=== PATIENT | male | born 1940 ===

== ENCOUNTER 2017-05-18 10:48 | Day surgery (SDC) | payer MEDICARE, MEDICAID ==
[2017-05-15 10:54] VITALS: BMI 26.1
[2017-05-18] MEDS ORDERED: Propofol 10 mg/ml Inj (20 ML) ONE (12:57)
[2017-05-18] MEDS ORDERED: Midazolam 2 MG/2 ML VIAL ONE ×2 (12:58)
--- NOTE | 2017-05-18 13:01 | CP.SDSHP ---
Same Day Surgery H & P - History Proposed Procedure: Right lung nodule biopsy Pre-Op Diagnosis: Right lung nodule - Allergies Allergies: Allergies No Known Allergies Allergy (Verified 05/16/14 13:27) - Physical Exam Mental Status: Alert & Oriented x3 Neuro: WNL Heart: WNL - Impression Impression: Pt with a 17 mm right lung nodule in the medial basal segment along the pleura referred for biopsy. Plan CT guided core biopsy. Informed consent obtained via a records management director and risk of pneumothorax requiring a chest tube was explained to the patient. Pt. Evaluated Today:Candidate for Anesthesia & Procedure: Yes Short Stay Discharge - Short Stay Discharge Admitting Diagnosis/Reason for Visit: LUNG LESION
--- NOTE | 2017-05-18 13:32 | CP.SDSHP ---
Same Day Surgery H & P - History Proposed Procedure: CT guided biopsy Pre-Op Diagnosis: Metastatic cancer lung nodule - Allergies Allergies: Allergies No Known Allergies Allergy (Verified 05/16/14 13:27) - Physical Exam Mental Status: Alert & Oriented x3 - Impression Impression: Pt with mulitple pulmonary nodules. Plan CT guided core biopsy. Pt. Evaluated Today:Candidate for Anesthesia & Procedure: Yes (ASA 3 Malampati 3) - Date & Time Date: 05/18/17 Time: 13:25 Short Stay Discharge - Short Stay Discharge Admitting Diagnosis/Reason for Visit: LUNG LESION Disposition: HOME/ ROUTINE
--- NOTE | 2017-05-18 15:09 | RAD ---
PROCEDURE: CHEST RADIOGRAPH, 1 VIEW HISTORY: Status post right lung nodule biopsy. COMPARISON: None available. FINDINGS: LUNGS: Multiple pulmonary nodules and right hilar mass identified. Please refer to CT scan 04/17/2017. PLEURA: No pneumothorax or pleural fluid seen. CARDIOVASCULAR: Normal. OSSEOUS STRUCTURES: No significant abnormalities. VISUALIZED UPPER ABDOMEN: Normal. OTHER FINDINGS: None. Right IJ port. IMPRESSION: No pneumothorax following right lung nodule biopsy. Multiple pulmonary nodules.
--- NOTE | 2017-05-18 15:27 | CT ---
PROCEDURE: Date of procedure: 05/18/2017 Procedure: 1. CT-guided lung mass biopsy, CPT [address] Guidance for biopsy, 559[address] Medications: The patient was sedated by anesthesiologist along with physiologic monitoring. HISTORY: Multiple pulmonary nodules TECHNIQUE: Following informed consent, the Pt's chest was marked. The Pt was placed prone on the CT table and procedure time out was performed. A noncontrast CT scan was performed. Noncontrast CT scan confirmed the presence multiple right and left pulmonary nodules. A skin localizer was placed on the patient's right back and a repeat CT scan was performed. The skin was marked, prepped, and draped in the usual sterile fashion. After the skin was anesthetized with lidocaine and the patient sedated by the anesthesiologist, a 20 gauge core needle was advanced percutaneously under direct CT guidance into the large right lower lobe pulmonary nodule. Upon confirmation of needle position, two 20-gauge core specimens were obtained and sent for routine pathology. The needle was removed and a xeroform dressing was applied. A post biopsy CT scan showed no pneumothorax. IMPRESSION: CT guided core biopsy right lung nodule.
== END 2017-05-18 15:52 | disposition home or self-care (01) ==
LOC: C.SPRAD 10:48
PROVIDERS: ATTEND Radiology Vascular & Interventional Radiology
DX: R91.1 Solitary pulmonary nodule (principal)
CPT/HCPCS: 32405; 71010; 77012; 88305; 88342; J2250; J2704

== ENCOUNTER 2017-06-13 10:07 | Emergency (ER) | payer MEDICARE, MEDICAID ==
[2017-06-13 10:07] VITALS: BMI 26.1
[2017-06-13 10:20] VITALS: TEMP 97.5
[2017-06-13] MEDS ORDERED: Lactated Ringer's 1,000 ML IV STA (11:50)
[2017-06-13] MEDS ORDERED: Iohexol 240 (50 ml) PO STA (11:50)
--- NOTE | 2017-06-13 11:51 | C.PDOC ---
History Of Present Illness 76 year old male presents to the ED for evaluation of periumbilical abdominal pain which began yesterday morning. Patient states he did not have an appetite yesterday and did not eat. Patient admits to experiencing three episodes of diarrhea, that was characteristic of loose brown stool. Patient states he is currently undergoing chemotherapy for metastatic lung cancer and his last session was 4 days ago. Patient denies nausea, vomiting, recent travel, or recent antibiotics use. History obtained via in demand translating service, due to language barrier ( patient is Burkinan-speaking). 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 denies: Nausea, Vomiting Recent travel outside of the [place]: No Additional History Per: Patient Past Medical History Reviewed: Historical Data, Nursing Documentation, Vital Signs Vital Signs: Last Vital Signs Temp 97.5 F L 06/13/17 10:15 Pulse 63 06/13/17 16:25 Resp 16 06/13/17 16:25 BP 134/81 06/13/17 16:25 Pulse Ox 99 06/13/17 17:59 - Medical History PMH: Gastritis Denies: Chronic Kidney Disease Surgical History: No Surg Hx - [facility] Procedures DRAINAGE OF STOMACH WITH DRAINAGE DEVICE, VIA OPENING (09/15/15) EXCISION OF JEJUNUM, OPEN APPROACH, DIAGNOSTIC (09/15/15) INSPECTION OF GASTROINTESTINAL TRACT, PERC ENDO APPROACH (09/15/15) Family History: States: Unknown Family Hx - Social History Hx Tobacco Use: No Hx Alcohol Use: No Hx Substance Use: No - Immunization History Hx Influenza Vaccination: No Hx Pneumococcal Vaccination: No Review Of Systems Gastrointestinal: Positive for: Abdominal Pain (periumbilical ), Diarrhea. Negative for: Nausea, Vomiting Physical Exam - Physical Exam Appears: Non-toxic, No Acute Distress Skin: Normal Color, Warm, Dry Head: Atraumatic, Normacephalic Eye(s): bilateral: Normal Inspection Oral Mucosa: Moist Neck: Supple Chest: Symmetrical, No Deformity, No Tenderness Cardiovascular: Rhythm Regular, No Murmur Respiratory: Normal Breath Sounds, No Rales, No Rhonchi, No Wheezing Gastrointestinal/Abdominal: Soft, Tenderness (periumbilical ), No Guarding, No Rebound Extremity: Normal ROM, Capillary Refill (less than 2 seconds ) Neurological/Psych: Oriented x3, Normal Speech, Normal Cognition Gait: Steady ED Course And Treatment - Laboratory Results Result Diagrams: 06/13/17 11:58 06/13/17 11:58 Lab Interpretation: Abnormal (leukocytopenia) O2 Sat by Pulse Oximetry: 99 (on RA) Pulse Ox Interpretation: Normal - CT Scan/US CT A/P Other Rad Studies (CT/US): Interpreted By Me, Read By Radiologist, Radiology Report Reviewed CT/US Interpretation: PROCEDURE: CT Abdomen and Pelvis with contrast. HISTORY : abdominal pain. COMPARISON: 04/17/2017. TECHNIQUE: Contrast dose: 150 mL Visipaque 320. Radiation dose: Total exam DLP = mGy-cm. This CT exam was performed using one or more of the following dose reduction techniques: Automated exposure control, adjustment of the mA and/or kV according to patient size, and/or use of iterative reconstruction technique. FINDINGS: LOWER THORAX : Again seen are multiple metastatic nodules in the visualized lungs and incompletely imaged is bilateral hilar lymphadenopathy, larger on the right. LIVER: The liver is normal in size and there is diffuse fatty infiltration. Few small low-attenuation lesions scattered in the liver are too small to characterize by CT criteria. There is a stable 15 mm simple cyst in the right hepatic lobe. No gross lesion or ductal dilatation. GALLBLADDER AND BILE DUCTS : There are no calcified gallstones. PANCREAS: Normal in size with homogeneous enhancement. No gross lesion or ductal dilatation. SPLEEN: The spleen is normal in size and appearance. ADRENALS: No discrete nodule. KIDNEYS AND URETERS: Normal in size and there is homogeneous enhancement. No hydronephrosis. No solid mass. There are multiple variable size cortical cysts in both kidneys, stable since the prior examination. VASCULATURE: No aortic aneurysm. BOWEL: There are postsurgical changes in the proximal small bowel loops. The small bowel loops are normal in caliber. The colon is unremarkable. APPENDIX: No inflammatory changes in the right lower quadrant. PERITONEUM: Unremarkable. No free fluid. No free air. LYMPH NODES: In the pelvis, the largest anterior to the left common iliac artery. BLADDER: Grossly normal in appearance. REPRODUCTIVE: The prostate gland is enlarged and there are multiple radiation seeds within. BONES: No acute fracture. Diffuse bone demineralization and multilevel degenerative changes in the spine. OTHER FINDINGS: None. IMPRESSION: 1. No acute abdominal or pelvic abnormality. 2. Enlarged prostate gland with radiation seeds within and stable metastatic lymph nodes in the pelvis, the largest anterior to the left common iliac artery. 3. Fatty liver and stable simple cyst in the right hepatic lobe. Few subcentimeter scattered lesions in the liver are too small to characterize by CT criteria. 3. Pulmonary metastasis and bilateral hilar adenopathy, larger on the right. Progress Note: Bloodwork, UA, and CT A/P ordered and reviewed. Morphine IVP, and Zofran IVP administered. On reassessment, patient is resting comfortably, showing no signs of distress and reports that his symptoms have resolved. Patient states he has prescribed narcotic medication at home. Case discussed with patient's PMD, Dr. Elizabeth, who states patient is stable for discharge if his symptoms have improved. Dr. Elizabeth instructs patient to follow up with him in office in 2 days for IV hydration if needed. Reassessment Condition: Improved Medical Decision Making Medical Decision Making: Case discussed with pt's oncologist Dr. Elizabeth, abd/pelv CT s new acute condition , pt's labs and vss, pt reports resolution of abdominal pain, will d/c pt home with f/u on Thursday with Dr. Elizabeth. Disposition Counseled Patient/Family Regarding: Studies Performed, Diagnosis, Need For Followup - Disposition Referrals: Gabe Elizabeth MD [Staff Provider] - Disposition: HOME/ ROUTINE Disposition Time: 15:55 Condition: STABLE Additional Instructions: FOLLOW UP WITH DR. ELIZABETH ON THURSDAY FOR RE-EVALUATION. IF SYMPTOMS GET WORSE OR ANY NEW CONCERNING SYMPTOMS DEVELOP RETURN TO ED. 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 - Scribe Statement The provider has reviewed the documentation as recorded by the Scribe (Peggy Samaniego) All medical record entries made by the Scribe were at my direction and personally dictated by me. I have reviewed the chart and agree that the record accurately reflects my personal performance of the history, physical exam, medical decision making, and the department course for this patient. I have also personally directed, reviewed, and agree with the discharge instructions and disposition.
[2017-06-13] MEDS ORDERED: Iohexol 240 (50 ml) ONE (12:01)
[2017-06-13] MEDS ORDERED: Lactated Ringer's 1,000 ML ONE (12:03)
[2017-06-13 12:04] LABS: BASO % 0.1 % (0.0-2.0); EOS # 0.1 K/uL (0.0-0.7); EOS % 3.4 % (0.0-4.0); HEMATOCRIT 41.5 % (35.0-51.0); LYMPH # 0.7 K/uL (1.0-4.3); LYMPH % 16.7 % (20.0-40.0); MEAN CELL VOLUME 88.4 fL (80.0-94.0); MEAN CORPUSCULAR HEMOGLOBIN 30.2 pg (27.0-31.0); MEAN CORPUSCULAR HGB CONC 34.2 g/dL (33.0-37.0); MONO # 0.1 K/uL (0.0-0.8); MONO % 2.1 % (0.0-10.0); NRBC % 0.1 % (0.0-2.0); RED CELL DISTRIBUTION WIDTH 12.9 % (11.5-14.5); WHITE BLOOD COUNT 4.1 K/uL (4.8-10.8)
[2017-06-13 12:13] LABS: CHLORIDE 96 mmol/L (98-107); POTASSIUM 4.1 mmol/L (3.6-5.2); SODIUM 132 mmol/L (132-148)
[2017-06-13 12:15] LABS: BILIRUBIN,TOTAL 2.2 mg/dL (0.2-1.3); GFR AFRICAN-AMERICAN > 60
[2017-06-13 12:16] LABS: ALB/GLOB RATIO 1.3 (1.0-2.1); ALKALINE PHOSPHATASE 73 U/L (38-126); ALT/SGPT 43 U/L (21-72); AST/SGOT 34 U/L (17-59); BLOOD UREA NITROGEN 17 mg/dL (9-20); CALCIUM 8.7 mg/dl (8.6-10.4); CARBON DIOXIDE 27 mmol/L (22-30); GLUCOSE,RANDOM 86 mg/dL (75-110); TOTAL PROTEIN 7.2 g/dL (6.3-8.3)
[2017-06-13] MEDS ORDERED: Iodixanol 320 mg/ml 150 ml Bottle IV ONE (14:20)
--- NOTE | 2017-06-13 15:23 | CT ---
PROCEDURE: CT Abdomen and Pelvis with contrast HISTORY: abdominal pain COMPARISON: 04/17/2017. TECHNIQUE: Contrast dose: 150 mL Visipaque 320 Radiation dose: Total exam DLP = mGy-cm. This CT exam was performed using one or more of the following dose reduction techniques: Automated exposure control, adjustment of the mA and/or kV according to patient size, and/or use of iterative reconstruction technique. FINDINGS: LOWER THORAX: Again seen are multiple metastatic nodules in the visualized lungs and incompletely imaged is bilateral hilar lymphadenopathy, larger on the right. LIVER: The liver is normal in size and there is diffuse fatty infiltration. Few small low-attenuation lesions scattered in the liver are too small to characterize by CT criteria. There is a stable 15 mm simple cyst in the right hepatic lobe. No gross lesion or ductal dilatation. GALLBLADDER AND BILE DUCTS: There are no calcified gallstones. PANCREAS: Normal in size with homogeneous enhancement. No gross lesion or ductal dilatation. SPLEEN: The spleen is normal in size and appearance. ADRENALS: No discrete nodule. KIDNEYS AND URETERS: Normal in size and there is homogeneous enhancement. No hydronephrosis. No solid mass. There are multiple variable size cortical cysts in both kidneys, stable since the prior examination. VASCULATURE: No aortic aneurysm. BOWEL: There are postsurgical changes in the proximal small bowel loops. The small bowel loops are normal in caliber. The colon is unremarkable. APPENDIX: No inflammatory changes in the right lower quadrant. PERITONEUM: Unremarkable. No free fluid. No free air. LYMPH NODES: In the pelvis, the largest anterior to the left common iliac artery. BLADDER: Grossly normal in appearance. REPRODUCTIVE: The prostate gland is enlarged and there are multiple radiation seeds within. BONES: No acute fracture. Diffuse bone demineralization and multilevel degenerative changes in the spine. OTHER FINDINGS: None. IMPRESSION: 1. No acute abdominal or pelvic abnormality. 2. Enlarged prostate gland with radiation seeds within and stable metastatic lymph nodes in the pelvis, the largest anterior to the left common iliac artery. 3. Fatty liver and stable simple cyst in the right hepatic lobe. Few subcentimeter scattered lesions in the liver are too small to characterize by CT criteria. 3. Pulmonary metastasis and bilateral hilar adenopathy, larger on the right.
[2017-06-13 15:34] LABS: RBC URINE < 1 /hpf (0-3); URINE BILIRUBIN NEGATIVE (NEGATIVE); URINE BLOOD NEGATIVE (NEGATIVE); URINE COLOR Yellow (YELLOW); URINE GLUCOSE (UA) NORMAL (Normal); URINE KETONE NEGATIVE (NEGATIVE); URINE LEUKOCYTE ESTERASE NEG Leu/uL (Negative); URINE PROTEIN NEGATIVE (NEGATIVE); URINE UROBILINOGEN NORMAL mg/dL (0.2-1.0); WBC URINE < 1 /hpf (0-5)
[2017-06-13 16:26] VITALS: BP 134/81; PULSE 63; RESP 16
[2017-06-13 16:42] VITALS: O2SAT 99
== END 2017-06-13 16:36 | disposition home or self-care (01) ==
LOC: C.ER 10:07
DX: R10.33 Periumbilical pain (principal); C78.00 Secondary malignant neoplasm of unspecified lung
CPT/HCPCS: 74177; 80053; 81001; 83690; 85025; 96374; 96375; 99285; J2270; J2405; J7120; Q9966; Q9967

== ENCOUNTER 2017-06-22 10:12 | Emergency (ER) | payer MEDICARE, MEDICAID ==
[2017-06-22 10:12] VITALS: BMI 26.1
[2017-06-22] MEDS ORDERED: Lactated Ringer's 1,000 ML IV STA (10:46)
--- NOTE | 2017-06-22 10:51 | C.PDOC ---
History Of Present Illness 76 y/o male with PMH of Metastatic colon cancer presents to ED with complaints of abdominal pain with associated diarrhea for 1 week. As per family who is at bedside patient has loss of appetite and has been taking medication for pain when necessary with no relief. Patient's last chemo was 4 days ago and has next chemo scheduled for 06/30/17. Patient saw Dr. Hart for symptoms and was told symptoms are secondary to chemotherapy. No other complaints at this time. Time Seen by Provider: 06/22/17 10:30 Chief Complaint (Nursing): Abdominal Pain History Per: Patient, Family History/Exam Limitations: no limitations Onset/Duration Of Symptoms: Days Current Symptoms Are (Timing): Still Present Location Of Pain/Discomfort: Diffuse Quality Of Discomfort: "Pain" Past Medical History Reviewed: Historical Data, Nursing Documentation, Vital Signs Vital Signs: Last Vital Signs Temp 98.4 F 06/22/17 12:44 Pulse 70 06/22/17 12:44 Resp 20 06/22/17 12:44 BP 102/68 06/22/17 12:44 Pulse Ox 100 06/23/17 14:20 - Medical History PMH: Gastritis, Malignancy (lung) - [facility] Procedures DRAINAGE OF STOMACH WITH DRAINAGE DEVICE, VIA OPENING (09/15/15) EXCISION OF JEJUNUM, OPEN APPROACH, DIAGNOSTIC (09/15/15) INSPECTION OF GASTROINTESTINAL TRACT, PERC ENDO APPROACH (09/15/15) Family History: States: No Known Family Hx - Social History Hx Tobacco Use: No Hx Alcohol Use: No Hx Substance Use: No - Immunization History Hx Influenza Vaccination: No Hx Pneumococcal Vaccination: No Review Of Systems Constitutional: Negative for: Fever, Chills Cardiovascular: Negative for: Chest Pain, Palpitations Respiratory: Negative for: Shortness of Breath, Hemoptysis Gastrointestinal: Positive for: Abdominal Pain, Diarrhea. Negative for: Nausea , Vomiting Genitourinary: Negative for: Dysuria, Hematuria Musculoskeletal: Negative for: Back Pain Skin: Negative for: Rash Physical Exam - Physical Exam Appears: Non-toxic, Chronically Ill Skin: Warm, Dry, No Rash Head: Atraumatic, Normacephalic Eye(s): bilateral: Normal Inspection, EOMI Oral Mucosa: Moist Neck: Normal ROM, Supple Chest: Symmetrical Cardiovascular: Rhythm Regular Respiratory: Normal Breath Sounds, No Rales, No Rhonchi, No Wheezing Gastrointestinal/Abdominal: Soft, Tenderness (mild diffuse abdominal), No Mass, No Distention, No Guarding, No Hernia Extremity: Normal ROM, No Pedal Edema, No Deformity Neurological/Psych: Oriented x3, Normal Speech Gait: Steady ED Course And Treatment - Laboratory Results Result Diagrams: 06/22/17 11:10 06/22/17 11:10 O2 Sat by Pulse Oximetry: 100 (RA) Pulse Ox Interpretation: Normal Medical Decision Making Medical Decision Making: Impression: abdominal pain Plan: Blood work, UA, Pepcid, Morphine Progress: Labs reviewed with no acute findings from prior visit. CT scan from 06/13/17 shows No acute abdominal or pelvic abnormality. Pulmonary metastasis and bilateral hilar adenopathy, larger on the right. Patient has no fever and stable vital signs. Clinically patient stable and in no distress. contact Dr Hart who agrees if patient stable can follow up outpatient. RN informs me of bands 16. Contact Dr Hart again and states send copy of labs to office and he will see tomorrow Disposition Discussed With Dr.: Daniel Hart (at 1200) Comment: discussed case and lab findings. Agrees if patient stable may be discharged and to follow up with Dr Hart in office tomorrow Counseled Patient/Family Regarding: Studies Performed, Diagnosis, Need For Followup - Disposition Referrals: Daniel Hart MD [Staff Provider] - Disposition: HOME/ ROUTINE Disposition Time: 13:40 Condition: STABLE Additional Instructions: Please follow up with Dr Hart in his office tomorrow Continue to take your pain meds as needed Por favor, sigue con el Dr. Hart en pringle oficina maana Contine tomando ninfa medicamentos para el dolor segn sea necesario Instructions: Acute Abdominal Pain (DC) Forms: [facility] [employer] (Khmer) Print Language: CITIZEN OF [place] - POA Present On Arrival: None - Clinical Impression Clinical Impression: Diarrhea, Chronic generalized abdominal pain - PA / SOLAR SYSTEMS DESIGNER / Resident Statement MD/DO has reviewed & agrees with the documentation as recorded. - Scribe Statement The provider has reviewed the documentation as recorded by the Patricaibnkecih Shirley All medical record entries made by the Scribe were at my direction and personally dictated by me. I have reviewed the chart and agree that the record accurately reflects my personal performance of the history, physical exam, medical decision making, and the department course for this patient. I have also personally directed, reviewed, and agree with the discharge instructions and disposition.
[2017-06-22] MEDS ORDERED: Lactated Ringer's 1,000 ML ONE (11:07)
[2017-06-22 11:19] LABS: HEMATOCRIT 42.4 % (35.0-51.0); MEAN CELL VOLUME 88.5 fL (80.0-94.0); MEAN CORPUSCULAR HEMOGLOBIN 29.9 pg (27.0-31.0); MEAN CORPUSCULAR HGB CONC 33.7 g/dL (33.0-37.0); MEAN PLATELET VOLUME 9.9 fL (7.2-11.7); PLATELET COUNT 142 K/uL (130-400); RED CELL DISTRIBUTION WIDTH 13.1 % (11.5-14.5); WHITE BLOOD COUNT 2.9 K/uL (4.8-10.8)
[2017-06-22 11:33] LABS: ALB/GLOB RATIO 1.2 (1.0-2.1); ALKALINE PHOSPHATASE 73 U/L (38-126); ALT/SGPT 36 U/L (21-72); AST/SGOT 25 U/L (17-59); BILIRUBIN,TOTAL 1.6 mg/dL (0.2-1.3); BLOOD UREA NITROGEN 19 mg/dL (9-20); CALCIUM 8.4 mg/dl (8.6-10.4); CARBON DIOXIDE 23 mmol/L (22-30); CHLORIDE 98 mmol/L (98-107); GFR AFRICAN-AMERICAN > 60; GLUCOSE,RANDOM 97 mg/dL (75-110); POTASSIUM 4.1 mmol/L (3.6-5.2); SODIUM 131 mmol/L (132-148); TOTAL PROTEIN 6.9 g/dL (6.3-8.3)
[2017-06-22 12:14] LABS: LYMPH # 0.8 K/uL (1.0-4.3); MONO # 0.6 K/uL (0.0-0.8)
[2017-06-22 12:17] LABS: EOSINOPHIL 2 % (0-4); NEUTROPHIL 34 % (50-75); TOTAL CELLS COUNTED 100
[2017-06-22 12:45] VITALS: BP 102/68; PULSE 70; RESP 20; TEMP 98.4
[2017-06-22 13:12] LABS: RBC URINE 6 /hpf (0-3); URINE BILIRUBIN NEGATIVE (NEGATIVE); URINE BLOOD NEGATIVE (NEGATIVE); URINE COLOR Yellow (YELLOW); URINE GLUCOSE (UA) NORMAL (Normal); URINE KETONE NEGATIVE (NEGATIVE); URINE LEUKOCYTE ESTERASE NEG Leu/uL (Negative); URINE PROTEIN 1+ mg/dL (NEGATIVE); URINE UROBILINOGEN NORMAL mg/dL (0.2-1.0); WBC URINE 5 /hpf (0-5)
[2017-06-23 09:50] VITALS: O2SAT 100
== END 2017-06-22 13:58 | disposition home or self-care (01) ==
LOC: C.ER 10:12
DX: G89.29 Other chronic pain (principal); R10.84 Generalized abdominal pain; R19.7 Diarrhea, unspecified
CPT/HCPCS: 80053; 81001; 83690; 85025; 96361; 96374; 96375; 99284; J2270; J7120

== ENCOUNTER 2017-06-23 13:00 | Inpatient (IN) | payer MEDICARE, MEDICAID ==
[2017-06-23 13:00] VITALS: BMI 26.1
[2017-06-23] MEDS ORDERED: Lactated Ringer's 1,000 ML IV STA ×2 (13:32→16:37)
[2017-06-23] MEDS ORDERED: Lactated Ringer's 1,000 ML ONE (13:47)
[2017-06-23 13:58] LABS: INR 1.5
[2017-06-23 14:02] LABS: BASO % 0.1 % (0.0-2.0); EOS % 0.2 % (0.0-4.0); HEMATOCRIT 45.8 % (35.0-51.0); LYMPH # 0.9 K/uL (1.0-4.3); MEAN CELL VOLUME 90.2 fL (80.0-94.0); MEAN CORPUSCULAR HEMOGLOBIN 29.9 pg (27.0-31.0); MEAN CORPUSCULAR HGB CONC 33.1 g/dL (33.0-37.0); MEAN PLATELET VOLUME 9.9 fL (7.2-11.7); MONO # 0.9 K/uL (0.0-0.8); NRBC % 0.4 % (0.0-2.0); PLATELET COUNT 165 K/uL (130-400); RED CELL DISTRIBUTION WIDTH 13.3 % (11.5-14.5); WHITE BLOOD COUNT 3.7 K/uL (4.8-10.8)
--- NOTE | 2017-06-23 14:14 | C.PDOC ---
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 Patient was seen in ED yesterday and went to see Dr. Hart today and was referred back to the ED for evaluation of dehydration. Patient denies vomiting, fever, or other complaints at this time. Time Seen by Provider: 06/23/17 13:17 Chief Complaint (Nursing): Abdominal Pain History Per: Patient History/Exam Limitations: no limitations Onset/Duration Of Symptoms: Days (2 weeks ) Current Symptoms Are (Timing): Still Present Location Of Pain/Discomfort: Diffuse Radiation Of Pain To:: None Quality Of Discomfort: "Pain" Associated Symptoms: Diarrhea. denies: Fever, Chills, Nausea, Vomiting, Urinary Symptoms Exacerbating Factors: None Alleviating Factors: None Recent travel outside of the [place]: No Additional History Per: Prior Records Past Medical History Reviewed: Historical Data, Nursing Documentation, Vital Signs Vital Signs: Last Vital Signs Temp 97.7 F 06/23/17 13:04 Pulse 94 H 06/23/17 13:04 Resp 18 06/23/17 13:04 BP 127/91 H 06/23/17 13:04 Pulse Ox 97 06/23/17 15:37 - Medical History PMH: Gastritis, Malignancy (lung) - [facility] Procedures DRAINAGE OF STOMACH WITH DRAINAGE DEVICE, VIA OPENING (09/15/15) EXCISION OF JEJUNUM, OPEN APPROACH, DIAGNOSTIC (09/15/15) INSPECTION OF GASTROINTESTINAL TRACT, PERC ENDO APPROACH (09/15/15) Family History: States: Unknown Family Hx - Social History Hx Tobacco Use: No Hx Alcohol Use: No Hx Substance Use: No - Immunization History Hx Influenza Vaccination: No Hx Pneumococcal Vaccination: No Review Of Systems Constitutional: Negative for: Fever, Chills Respiratory: Negative for: Cough, Shortness of Breath Gastrointestinal: Positive for: Abdominal Pain, Diarrhea. Negative for: Nausea , Vomiting Genitourinary: Negative for: Dysuria, Incontinence Physical Exam - Physical Exam Appears: Non-toxic, Chronically Ill, Other (Patient appears dehydrated ) Skin: Warm, Dry, No Rash Head: Atraumatic, Normacephalic, No Tenderness Eye(s): bilateral: Normal Inspection, PERRL, EOMI Oral Mucosa: Dry Neck: Supple Chest: Symmetrical, No Deformity Cardiovascular: Rhythm Regular, No Murmur Respiratory: No Rales, No Rhonchi, No Wheezing Gastrointestinal/Abdominal: Soft, Tenderness (mild diffuse tenderness ), No Distention, No Guarding, No Rebound Extremity: Normal ROM, No Tenderness Neurological/Psych: Oriented x3 ED Course And Treatment - Laboratory Results Result Diagrams: 06/23/17 13:46 06/23/17 13:46 O2 Sat by Pulse Oximetry: 97 (RA) Pulse Ox Interpretation: Normal Progress Note: Labs were ordered and patient was given Pepcid, Morphine, and Lactated Ringer's IV. Medical Decision Making Medical Decision Makin :spoke with Dr Daniel Hart who believes patient needs fluids, patient appears dehydrated and has continuous pain. He recommends IVF and possible admission but to hospitalist Case discussed with attending Dr Elkins who also evaluated patient at bedside. She agrees patient appears dehydrated and would benefit from IVF as well as inpatient care with palliative care consult and further evaluation. Patient has intractable pain secondary to malignancy however patient also has poor understanding and unclear of whom to follow up with, he has only been under care of [facility]. Upon further questioning of family, his PCP Dr Constanza Farah retired and is supposed to see Dr Man, whom admits to hospitalist Labs reviewed and bands has increased today, Dr Elkins discussed case with DR Jannie eduardo inspector outside steam distribution and accepted admission. 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 - Scribe Statement The provider has reviewed the documentation as recorded by the Scribe Rand Gould All medical record entries made by the Patricaibnkechi were at my direction and personally dictated by me. I have reviewed the chart and agree that the record accurately reflects my personal performance of the history, physical exam, medical decision making, and the department course for this patient. I have also personally directed, reviewed, and agree with the discharge instructions and disposition. Decision To Admit - Pt Status Changed To: Hospital Disposition Of: Inpatient - Admit Certification Admit to Inpatient:: After my assessment, the patient will require hospitalization for at least two midnights. This is because of the severity of symptoms shown, intensity of services needed, and/or the medical risk in this patient being treated as an outpatient. - InPatient: Physician Admission Certification:: Patient with colon cancer and intractable abdominal pain, associated with diarrhea. Patient is dehydrated and needs admission with consults to oncology and palliative care - . Bed Request Type: Regular Admitting Physician: Luzmaria Lopez Patient Diagnosis: Intractable abdominal pain, Adenocarcinoma
[2017-06-23 14:19] LABS: ALB/GLOB RATIO 0.9 (1.0-2.1); ALKALINE PHOSPHATASE 75 U/L (38-126); ALT/SGPT 36 U/L (21-72); AST/SGOT 21 U/L (17-59); BILIRUBIN,TOTAL 1.7 mg/dL (0.2-1.3); BLOOD UREA NITROGEN 24 mg/dL (9-20); CALCIUM 8.7 mg/dl (8.6-10.4); CARBON DIOXIDE 25 mmol/L (22-30); CHLORIDE 95 mmol/L (98-107); GFR AFRICAN-AMERICAN > 60; GLUCOSE,RANDOM 115 mg/dL (75-110); SODIUM 133 mmol/L (132-148); TOTAL PROTEIN 8.2 g/dL (6.3-8.3)
[2017-06-23 14:35] LABS: NEUTROPHIL 22 % (50-75); NUCLEATED RED BLOOD CELL 1 % (0-0); TOTAL CELLS COUNTED 100
[2017-06-23 14:36] LABS: LARGE PLATELETS PRESENT
[2017-06-23] MEDS ORDERED: oxyCODONE 5 mg Immediate Release Tab PO PRN (16:38)
--- NOTE | 2017-06-23 17:12 | CP.PCM.HP ---
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 The abdominal pain has been constant for the past year and gets worse at various times; today rated at 9/10. There is no radiation of the pain. Patient states he takes no pain medication at home and the pain is sometimes alleviated. Patient states the last time the pain was this worse was yesterday for which is was admitted for as well. During that visit, patient states he received morphine and was discharged since the pain was controlled. Patient also notes chronic diarrhea after he eats. Patient states he last ate a meal on Thursday and since then he has been mainly drinking water. Patient has been receiving chemotherapy for the past year and stopped last week. Patient states he will continue the chemotherapy regime with direction from his oncologist, Dr. Hart. Patient admits to cough, diarrhea, decrease in appetite, decrease in weight ( 100 pounds over the past 1 year), and chronic lightheadedness and feeling weak. Denies fever, chills, weakness, vision changes, chest pain, shortness of breath , palpitations, hematochezia, dysuria, urinary/fecal incontinence, recent travel and sick contacts. Code: Full Code PMD: Dr. Man Hem/Onc: Dr. 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 Patient lives with son in an apartment in [place]. Home Meds: Oxycodone 5mg; Ondansetron 4mg Allergies: NKDA Present on Admission - Present on Admission Any Indicators Present on Admission: No Review of Systems - Constitutional Constitutional: Weight Loss, Weakness. absent: Chills, Fever, Headache - EENT Ears: absent: Dizziness Nose/Mouth/Throat: absent: Dry Mouth, Sore Throat - Cardiovascular Cardiovascular: Lightheadedness. absent: Chest Pain, Dyspnea, Palpitations - Respiratory Respiratory: absent: Cough, Dyspnea - Gastrointestinal Gastrointestinal: Cramping, Loose Stools. absent: Constipation, Hematemesis, Hematochezia, Melena, Nausea, Vomiting - Genitourinary Genitourinary: absent: Dysuria - Musculoskeletal Musculoskeletal: absent: Numbness - Neurological Neurological: absent: Dizziness, Headaches - Psychiatric Psychiatric: Change in Appetite - Endocrine Endocrine: absent: Palpitations Past Patient History - Infectious Disease Hx of Infectious Diseases: None - Past Medical History & Family History Past Medical History?: Yes - Past Social History Smoking Status: Former Smoker - CARDIAC Hx Cardiac Disorders: No - PULMONARY Other/Comment: lung cancer - NEUROLOGICAL Hx Neurological Disorder: No - HEENT Hx HEENT Problems: No - RENAL Hx Chronic Kidney Disease: No - ENDOCRINE/METABOLIC Hx Endocrine Disorders: No - HEMATOLOGICAL/ONCOLOGICAL Hx Cancer: Yes (LUNG/Colon) Other/Comment: Thursday Chemo - INTEGUMENTARY Hx Dermatological Problems: No - MUSCULOSKELETAL/RHEUMATOLOGICAL Hx Musculoskeletal Disorders: No - GASTROINTESTINAL Hx Gastritis: Yes - GENITOURINARY/GYNECOLOGICAL Hx Genitourinary Disorders: Yes Hx Prostate Cancer: Yes (RESOLVED 5YRS AGO) - PSYCHIATRIC Hx Substance Use: No - SURGICAL HISTORY Hx Surgeries: Yes Other/Comment: 09/21/15-LAPAROTOMY WITH RESECTION OF SMALL BOWEL AND SIDE TO SIDE ANASTAMOSIS. - ANESTHESIA Hx Anesthesia: Yes Hx Anesthesia Reactions: No Hx Malignant Hyperthermia: No Meds Allergies/Adverse Reactions: Allergies Allergy/AdvReac Type Severity Reaction Status Date / Time No Known Allergies Allergy Verified 06/22/17 10:15 Physical Exam - Constitutional Appears: No Acute Distress - Head Exam Head Exam: ATRAUMATIC, NORMAL INSPECTION - Eye Exam Eye Exam: EOMI, Normal appearance - ENT Exam ENT Exam: Mucous Membranes Dry - Respiratory Exam Respiratory Exam: Clear to Auscultation Bilateral, NORMAL BREATHING PATTERN. absent: Rales, Rhonchi, Wheezes, Stridor - Cardiovascular Exam Cardiovascular Exam: REGULAR RHYTHM, RRR, +S1, +S2. absent: Gallop, Rubs Additional comments: Portacath on the right upper chest - GI/Abdominal Exam GI & Abdominal Exam: Normal Bowel Sounds, Soft, Tenderness. absent: Distended, Firm, Guarding, Rigid - Extremities Exam Extremities exam: Positive for: normal inspection. Negative for: pedal edema, tenderness - Neurological Exam Neurological exam: Alert, CN II-XII Intact, Oriented x3 - Expanded Neurological Exam Expanded Patient oriented to: person, place, time Sensory exam: Lower Extremity 2 Point Discrimination: Normal, Upper Extremity 2 Point Discrimination: Normal Neuro motor strength exam: Left Upper Extremity: 5, Right Upper Extremity: 5, Left Lower Extremity: 5, Right Lower Extremity: 5 Coma Scale Eye Opening: SPONTANEOUS Coma Scale Motor Response: OBEYS COMMANDS - Psychiatric Exam Psychiatric exam: Normal Affect, Normal Mood - Skin Skin Exam: Normal Color, Warm Results - Vital Signs Recent Vital Signs: Last Vital Signs Temp 97.7 F 06/23/17 13:04 Pulse 94 H 06/23/17 13:04 Resp 18 06/23/17 13:04 BP 127/91 H 06/23/17 13:04 Pulse Ox 97 06/23/17 15:37 - Labs Result Diagrams: 06/23/17 13:46 06/23/17 13:46 Labs: Laboratory Results - last 24 hr 06/23/17 06/23/17 06/23/17 13:46 13:46 13:46 WBC 3.7 L RBC 5.07 Hgb 15.1 Hct 45.8 MCV 90.2 MCH 29.9 MCHC 33.1 RDW 13.3 Plt Count 165 MPV 9.9 Neut % (Auto) 51.7 Lymph % (Auto) 24.0 [place] % (Auto) 24.0 H Eos % (Auto) 0.2 Baso % (Auto) 0.1 Neut # 1.9 Lymph # 0.9 L [place] # 0.9 H Eos # 0.0 Baso # 0.0 Neutrophils % (Manual) 22 L Band Neutrophils % 21 H* Lymphocytes % (Manual) 36 Monocytes % (Manual) 21 H Nucleated RBC % 1 H Platelet Estimate Normal Large Platelets Present RBC Morphology Normal PT 17.2 H INR 1.5 APTT 28 Sodium 133 Potassium 4.0 Chloride 95 L Carbon Dioxide 25 Anion Gap 16 BUN 24 H Creatinine 1.2 Est GFR ( Amer) > 60 Est GFR (Non-Af Amer) 59 Random Glucose 115 H Calcium 8.7 Total Bilirubin 1.7 H AST 21 ALT 36 Alkaline Phosphatase 75 Ammonia Total Protein 8.2 Albumin 3.9 Globulin 4.2 H Albumin/Globulin Ratio 0.9 L Lipase 11 L 06/23/17 13:46 WBC RBC Hgb Hct MCV MCH MCHC RDW Plt Count MPV Neut % (Auto) Lymph % (Auto) [place] % (Auto) Eos % (Auto) Baso % (Auto) Neut # Lymph # [place] # Eos # Baso # Neutrophils % (Manual) Band Neutrophils % Lymphocytes % (Manual) Monocytes % (Manual) Nucleated RBC % Platelet Estimate Large Platelets RBC Morphology PT INR APTT Sodium Potassium Chloride Carbon Dioxide Anion Gap BUN Creatinine Est GFR ( Amer) Est GFR (Non-Af Amer) Random Glucose Calcium Total Bilirubin AST ALT Alkaline Phosphatase Ammonia 9 Total Protein Albumin Globulin Albumin/Globulin Ratio Lipase Assessment & Plan - Assessment and Plan (Free Text) Assessment: 1.) Small Bowel Adenocarcinoma with Metastasis to Lungs Heme/Onc Consult: Dr. Hart --> help appreciated Palliative Consult: Ruth --> help appreciated 2.) Abdominal Pain possibly secondary to small bowel adenocarcinoma vs. infection GI consult: Dr. Weiss --> help appreciated - Obstructive Series (06/23/17): Findings concerning for mechanical small-bowel obstruction. No free intraperitonneal air. Bilateral hilar lymphadenopathy. 10mm left basilar pulmonary nodule. - Medications: * Cipro/Flagyl * Morphine IV 1mg PRN Q4H * MS Contin PO Q12H * Lactated Ringers 130mg/kg/hr * Zofran 4mg IV q6h PRN for nausea 3.) History of Chronic Diarrhea - afebrile - f/u Stool parasites - f/u Stool WBC - f/u Stool C. Diff 4.) Neutropenia - secondary to Small Bowel Adenocarcinoma with Metastasis to Lungs s/p chemotherapy one week ago - WBC on admission (06/23): 3.7 - Monitor 5.)Prophylaxis - SCDs - Heparin 5000 U SC Q8H - Pepcid 20mg PO daily Case discussed with Dr. Evelio Leonard PGY-1
--- NOTE | 2017-06-23 17:32 | RAD ---
PROCEDURE: Radiographs of the chest and abdomen (obstructive series) HISTORY: abdominal pain COMPARISON: Chest x-ray 05/18/2017 TECHNIQUE: AP radiograph of the chest, with upright and supine radiographs of the abdomen. FINDINGS: CHEST: Lungs: No infiltrate. 10 mm nodule at left lung base. More numerous nodules were seen on prior chest radiograph. Cardiovascular: Normal heart size. Bilateral hilar lymphadenopathy. Right central venous infusion port. Pleura: No pleural fluid. No pneumothorax. Other findings: None. ABDOMEN AND PELVIS: Bowel: Numerous dilated small bowel loops with differential air-fluid levels on upright consistent with mechanical small bowel obstruction. Free air: None. Bones: Unremarkable. Other findings: Radiation seed implants in prostate bed. IMPRESSION: Findings concerning for mechanical small-bowel obstruction. No free intraperitoneal air. Bilateral hilar lymphadenopathy. 10 mm left basilar pulmonary nodule.
[2017-06-23 20:45] VITALS: RESP 20
--- NOTE | 2017-06-23 21:30 | CP.PCM.CON ---
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 The patient notes to increasing diffuse abdominal pain with 10 or more watery bowel movements daily. He is not able to drink much due to the abdominal pain. He denies fevers and chills. Past medical history: Stage IV small bowel adenocarcinoma Past surgical history: portacath Family history: Denies hematologic and oncologic problems Social history: Denies tobacco, alcohol, and illicit drug use. Allergies: NKA Review of systems: All remaining review of systems including HEENT, cardiovascular, respiratory, gastrointestinal, genitourinary, musculoskeletal, dermatologic, neurologic, and psychiatric are negative unless mentioned in the HPI. Past Patient History - Infectious Disease Hx of Infectious Diseases: None - Past Medical History & Family History Past Medical History?: Yes - Past Social History Smoking Status: Former Smoker - CARDIAC Hx Cardiac Disorders: No - PULMONARY Other/Comment: lung cancer - NEUROLOGICAL Hx Neurological Disorder: No - HEENT Hx HEENT Problems: No - RENAL Hx Chronic Kidney Disease: No - ENDOCRINE/METABOLIC Hx Endocrine Disorders: No - HEMATOLOGICAL/ONCOLOGICAL Hx Cancer: Yes (LUNG/Colon) Other/Comment: Thursday Chemo - INTEGUMENTARY Hx Dermatological Problems: No - MUSCULOSKELETAL/RHEUMATOLOGICAL Hx Musculoskeletal Disorders: No - GASTROINTESTINAL Hx Gastritis: Yes - GENITOURINARY/GYNECOLOGICAL Hx Genitourinary Disorders: Yes Hx Prostate Cancer: Yes (RESOLVED 5YRS AGO) - PSYCHIATRIC Hx Substance Use: No - SURGICAL HISTORY Hx Surgeries: Yes Other/Comment: 09/21/15-LAPAROTOMY WITH RESECTION OF SMALL BOWEL AND SIDE TO SIDE ANASTAMOSIS. - ANESTHESIA Hx Anesthesia: Yes Hx Anesthesia Reactions: No Hx Malignant Hyperthermia: No Meds Allergies/Adverse Reactions: Allergies Allergy/AdvReac Type Severity Reaction Status Date / Time No Known Allergies Allergy Verified 06/22/17 10:15 - Medications Medications: Current Medications Ciprofloxacin (Cipro) 250 mg PO BID [facility] Last Admin: 06/23/17 17:08 Dose: 250 mg Famotidine (Pepcid) 20 mg PO DAILY [facility] Heparin Sodium (Porcine) (Heparin) 5,000 units SC Q8 [facility] Metronidazole (Flagyl) 250 mg PO Q8H [facility] Last Admin: 06/23/17 17:08 Dose: 250 mg Morphine Sulfate (Morphine Extended Release Tab) 15 mg PO Q12 [facility] Morphine Sulfate (Morphine) 1 mg IV Q4 PRN PRN Reason: Pain, moderate (4-7) Ondansetron HCl (Zofran Inj) 4 mg IVP Q6H PRN PRN Reason: Nausea/Vomiting Oxycodone HCl (Oxycodone Immediate Release Tab) 5 mg PO Q6 PRN PRN Reason: Pain, Mild (1-3) Physical Exam - Head Exam Head Exam: ATRAUMATIC - Eye Exam Eye Exam: Normal appearance - ENT Exam ENT Exam: Mucous Membranes Dry - Respiratory Exam Respiratory Exam: NORMAL BREATHING PATTERN - Cardiovascular Exam Cardiovascular Exam: +S1, +S2 - GI/Abdominal Exam GI & Abdominal Exam: Hyperactive Bowel Sounds - Extremities Exam Extremities exam: Positive for: normal inspection - Neurological Exam Neurological exam: Oriented x3 - Psychiatric Exam Psychiatric exam: Normal Affect, Normal Mood - Skin Skin Exam: Warm Results - Vital Signs Recent Vital Signs: Last Vital Signs Temp 98.2 F 06/23/17 20:43 Pulse 86 06/23/17 20:43 Resp 20 06/23/17 20:43 BP 112/75 06/23/17 20:43 Pulse Ox 95 06/23/17 20:43 - Labs Result Diagrams: 06/23/17 13:46 06/23/17 13:46 Labs: Laboratory Results - last 24 hr 06/23/17 06/23/17 06/23/17 13:46 13:46 13:46 WBC 3.7 L RBC 5.07 Hgb 15.1 Hct 45.8 MCV 90.2 MCH 29.9 MCHC 33.1 RDW 13.3 Plt Count 165 MPV 9.9 Neut % (Auto) 51.7 Lymph % (Auto) 24.0 [place] % (Auto) 24.0 H Eos % (Auto) 0.2 Baso % (Auto) 0.1 Neut # 1.9 Lymph # 0.9 L [place] # 0.9 H Eos # 0.0 Baso # 0.0 Neutrophils % (Manual) 22 L Band Neutrophils % 21 H* Lymphocytes % (Manual) 36 Monocytes % (Manual) 21 H Nucleated RBC % 1 H Platelet Estimate Normal Large Platelets Present RBC Morphology Normal PT 17.2 H INR 1.5 APTT 28 Sodium 133 Potassium 4.0 Chloride 95 L Carbon Dioxide 25 Anion Gap 16 BUN 24 H Creatinine 1.2 Est GFR ( Amer) > 60 Est GFR (Non-Af Amer) 59 Random Glucose 115 H Calcium 8.7 Total Bilirubin 1.7 H AST 21 ALT 36 Alkaline Phosphatase 75 Ammonia Total Protein 8.2 Albumin 3.9 Globulin 4.2 H Albumin/Globulin Ratio 0.9 L Lipase 11 L 06/23/17 13:46 WBC RBC Hgb Hct MCV MCH MCHC RDW Plt Count MPV Neut % (Auto) Lymph % (Auto) [place] % (Auto) Eos % (Auto) Baso % (Auto) Neut # Lymph # [place] # Eos # Baso # Neutrophils % (Manual) Band Neutrophils % Lymphocytes % (Manual) Monocytes % (Manual) Nucleated RBC % Platelet Estimate Large Platelets RBC Morphology PT INR APTT Sodium Potassium Chloride Carbon Dioxide Anion Gap BUN Creatinine Est GFR ( Amer) Est GFR (Non-Af Amer) Random Glucose Calcium Total Bilirubin AST ALT Alkaline Phosphatase Ammonia 9 Total Protein Albumin Globulin Albumin/Globulin Ratio Lipase Assessment & Plan (1) Diarrhea Assessment and Plan: likely secondary to chemotherapy can start imodium/lamotil once infectious w/u negative Status: Acute (2) Leukopenia Assessment and Plan: mild, secondary to chemotherapy Status: Acute (3) Small bowel carcinoma Assessment and Plan: metastasis to the lungs on outpatient chemotherapy will check CEA Thank you for this interesting consult. Status: Acute
[2017-06-23] MEDS: Morphine 15 mg SR Tab PO SCH (22:49)
[2017-06-23 22:51] LABS: RBC URINE 2 /hpf (0-3); URINE BACTERIA RARE (<OCC); URINE BILIRUBIN NEGATIVE (NEGATIVE); URINE BLOOD NEGATIVE (NEGATIVE); URINE COLOR Yellow (YELLOW); URINE GLUCOSE (UA) NORMAL (Normal); URINE KETONE TRACE mg/dL (NEGATIVE); URINE LEUKOCYTE ESTERASE NEG Leu/uL (Negative); URINE PROTEIN NEGATIVE (NEGATIVE); URINE UROBILINOGEN NORMAL mg/dL (0.2-1.0); WBC URINE 1 /hpf (0-5)
[2017-06-24 08:01] LABS: BASO % 0.1 % (0.0-2.0); EOS % 0.6 % (0.0-4.0); HEMATOCRIT 41.4 % (35.0-51.0); LYMPH # 0.7 K/uL (1.0-4.3); LYMPH % 24.1 % (20.0-40.0); MEAN CELL VOLUME 88.4 fL (80.0-94.0); MEAN CORPUSCULAR HEMOGLOBIN 29.7 pg (27.0-31.0); MEAN CORPUSCULAR HGB CONC 33.6 g/dL (33.0-37.0); MEAN PLATELET VOLUME 10.3 fL (7.2-11.7); MONO # 0.6 K/uL (0.0-0.8); MONO % 21.1 % (0.0-10.0); NRBC % 0.4 % (0.0-2.0); PLATELET COUNT 170 K/uL (130-400); RED CELL DISTRIBUTION WIDTH 13.1 % (11.5-14.5); WHITE BLOOD COUNT 2.9 K/uL (4.8-10.8)
[2017-06-24 08:26] LABS: ALB/GLOB RATIO 1.1 (1.0-2.1); ALKALINE PHOSPHATASE 70 U/L (38-126); ALT/SGPT 33 U/L (21-72); AST/SGOT 20 U/L (17-59); BILIRUBIN,DIRECT 0.7 mg/dL (0.0-0.4); BILIRUBIN,TOTAL 1.8 mg/dL (0.2-1.3); BLOOD UREA NITROGEN 22 mg/dL (9-20); CALCIUM 8.3 mg/dl (8.6-10.4); CARBON DIOXIDE 26 mmol/L (22-30); CHLORIDE 96 mmol/L (98-107); GFR AFRICAN-AMERICAN > 60; GLUCOSE,RANDOM 111 mg/dL (75-110); MAGNESIUM 1.8 mg/dL (1.6-2.3); PHOSPHOROUS 3.8 mg/dL (2.5-4.5); POTASSIUM 3.8 mmol/L (3.6-5.2); SODIUM 131 mmol/L (132-148); TOTAL PROTEIN 6.4 g/dL (6.3-8.3)
[2017-06-24 09:51] LABS: EOSINOPHIL 2 % (0-4); NEUTROPHIL 20 % (50-75); NUCLEATED RED BLOOD CELL 1 % (0-0); TOTAL CELLS COUNTED 100
[2017-06-24] MEDS: Morphine 15 mg SR Tab PO SCH ×2 (11:17→22:10)
--- NOTE | 2017-06-24 12:46 | CP.PCM.PN ---
<AzusaYudy maganatroy Muir - Last Filed: 06/24/17 14:56> Subjective - Date & Time of Evaluation Date of Evaluation: 06/24/17 Time of Evaluation: 07:40 - Subjective Subjective: Medicine Note (PGY-1)---> Dr. Rodriguez's service Patient was seen and examined at bedside. Patient states that he is doing well and his pain is moderately controlled. Patient admits to decrease in appetite, passing flatus and diarrhea. Patient denies fever, chills, nausea, vomiting, chest pain, SOB and palpitations. Objective - Vital Signs/Intake and Output Vital Signs (last 24 hours): Temp Pulse Resp BP Pulse Ox 98.2 F 85 20 113/75 96 06/24/17 08:03 06/24/17 08:03 06/24/17 08:03 06/24/17 08:03 06/24/17 08:03 Intake and Output: 06/24/17 06/24/17 06:59 18:59 Intake Total 520 Balance 520 - Medications Medications: Current Medications Ciprofloxacin (Cipro) 500 mg PO BID NEO Famotidine (Pepcid) 20 mg PO DAILY [facility] Last Admin: 06/24/17 11:16 Dose: 20 mg Heparin Sodium (Porcine) (Heparin) 5,000 units SC Q8 [facility] Last Admin: 06/24/17 05:27 Dose: 5,000 units Metronidazole (Flagyl) 500 mg PO Q8H [facility] Morphine Sulfate (Morphine Extended Release Tab) 15 mg PO Q12 [facility] Last Admin: 06/24/17 11:17 Dose: Not Given Morphine Sulfate (Morphine) 1 mg IV Q4 PRN PRN Reason: Pain, moderate (4-7) Ondansetron HCl (Zofran Inj) 4 mg IVP Q6H PRN PRN Reason: Nausea/Vomiting Oxycodone HCl (Oxycodone Immediate Release Tab) 5 mg PO Q6 PRN PRN Reason: Pain, Mild (1-3) - Labs Labs: 06/24/17 07:22 06/24/17 07:22 PT 17.2 SECONDS (9.7-12.2) H 06/23/17 13:46 INR 1.5 06/23/17 13:46 APTT 28 SECONDS (21-34) 06/23/17 13:46 - Constitutional Appears: Non-toxic, No Acute Distress - Head Exam Head Exam: ATRAUMATIC - Eye Exam Eye Exam: EOMI, Normal appearance - ENT Exam ENT Exam: Mucous Membranes Dry - Respiratory Exam Respiratory Exam: Clear to Ausculation Bilateral, NORMAL BREATHING PATTERN - Cardiovascular Exam Cardiovascular Exam: REGULAR RHYTHM, +S1, +S2 - GI/Abdominal Exam GI & Abdominal Exam: Soft, Normal Bowel Sounds - Extremities Exam Extremities Exam: Normal Inspection. absent: Calf Tenderness, Pedal Edema - Neurological Exam Neurological Exam: Alert, Awake, Oriented x3 - Psychiatric Exam Psychiatric exam: Normal Mood - Skin Skin Exam: Normal Color Assessment and Plan (1) Small bowel obstruction Assessment & Plan: Stable General Surgery consulted, Dr. Hill * Management as per recommendation Gastrointestinal consulted, Dr. Weiss * Management as per recommendation Imaging: Abdominal Obstructive series: Findings concerning for mechanical small-bowel obstruction. No free intraperitoneal air. Bilateral hilar lymphadenopathy. 10 mm left basilar pulmonary nodule. 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 Hart --> help appreciated * Chemotherapy on hold due to leukopenia Palliative Consult: Ruth --> help appreciated General Surgery, Dr. Hill---> Help appreciated * 09/04/16: Proximal bowel obstruction and ex lap for small bowel tumor in the mid -jejunum Imaging: Abdomen/Pelvis CT ( 06/13/17):Enlarged prostate gland with radiation seeds within and stable metastatic lymph nodes in the pelvis, the largest anterior to the left common iliac artery. Fatty liver and stable simple cyst in the right hepatic lobe. Few subcentimeter scattered lesions in the liver are too small to characterize by CT criteria. Pulmonary metastasis and bilateral hilar adenopathy , larger on the right. Abdomen/Pelvis CT ( 04/17/17): Innumerable new pulmonary metastasis the preponderance of which are 1 cm or less. The largest nodules in the lower lobe are all less than 1.6 cm. Status: Acute (3) Abdominal pain Assessment & Plan: Possibly secondary to small bowel adenocarcinoma vs. infection vs SBO GI consult: Dr. Weiss --> help appreciated * Management as per recommendation General Surgery, Dr. Hill - Obstructive Series (06/23/17): Findings concerning for mechanical small-bowel obstruction. No free intraperitonneal air. Bilateral hilar lymphadenopathy. 10mm left basilar pulmonary nodule. - Medications: * Morphine IV 1mg PRN Q4H * MS Contin 15mg PO Q12H * Lactated Ringers 130mg/kg/hr * Zofran 4mg IV q6h PRN for nausea Status: Acute (4) Diarrhea Assessment & Plan: Gastrointestinal consulted, Dr. Weiss * Management as per recommendation Labs: * F/u stool culture, ova and parasite, Cryptosporidium, Giardia, fecal leukocytes Medicatons: * Cipro 500mg PO BID * Flagyl 500mg PO Q8H * If Status: Acute (5) Leukopenia Assessment & Plan: Possibly secondary to chemotherapy for Stage IV small bowel adenocarcinoma with mets to the lungs Low WBC * Continue to monitor * Chemotherapy on hold due to neutropenia * Status: Acute (6) Bandemia Assessment & Plan: --> * Continue to monitor * R/O infection with stool studies and blood culture Medication: * Cipro 500mg PO BID * Flagyl 500mg PO Q8H Status: Acute (7) Prophylactic measure Assessment & Plan: - SCDs - Heparin 5000 U SC Q8H - Pepcid 20mg PO daily -Florastor 250mg PO BID Status: Acute <Constanza Rodriguez V - Last Filed: 06/25/17 00:15> Objective - Vital Signs/Intake and Output Vital Signs (last 24 hours): Temp Pulse Resp BP Pulse Ox 97.9 F 82 20 112/78 98 06/24/17 15:00 06/24/17 15:09 06/24/17 15:00 06/24/17 15:09 06/24/17 15:09 Intake and Output: 06/24/17 06/25/17 18:59 06:59 Intake Total 240 350 Balance 240 350 - Medications Medications: Current Medications Famotidine (Pepcid) 20 mg PO DAILY [facility] Last Admin: 06/24/17 11:16 Dose: 20 mg Heparin Sodium (Porcine) (Heparin) 5,000 units SC Q8 [facility] Last Admin: 06/24/17 22:06 Dose: 5,000 units Ceftriaxone Sodium (Rocephin Iv 1 Gm Duplex) 50 mls @ 100 mls/hr IVPB Q24H [facility] Last Admin: 06/24/17 18:16 Dose: 100 mls/hr Metronidazole (Flagyl) 500 mg in 100 mls @ 100 mls/hr IVPB Q8 [facility] Last Admin: 06/24/17 21:14 Dose: 100 mls/hr Morphine Sulfate (Morphine Extended Release Tab) 15 mg PO Q12 [facility] Last Admin: 06/24/17 22:10 Dose: Not Given Morphine Sulfate (Morphine) 1 mg IV Q4 PRN PRN Reason: Pain, moderate (4-7) Last Admin: 06/24/17 15:21 Dose: 1 mg Ondansetron HCl (Zofran Inj) 4 mg IVP Q6H PRN PRN Reason: Nausea/Vomiting Oxycodone HCl (Oxycodone Immediate Release Tab) 5 mg PO Q6 PRN PRN Reason: Pain, Mild (1-3) - Labs Labs: 06/24/17 07:22 06/24/17 07:22 PT 17.2 SECONDS (9.7-12.2) H 06/23/17 13:46 INR 1.5 06/23/17 13:46 APTT 28 SECONDS (21-34) 06/23/17 13:46 Attending/Attestation - Attestation I have personally seen and examined this patient.: Yes I have fully participated in the care of the patient.: Yes I have reviewed all pertinent clinical information, including history, physical exam and plan: Yes Notes (Text): This is a late computer entry for 06/24/17. Patient seen, examined and case discussed with day-time resident. Patient seen status post session with physical therapist with son and daughter at bedside. Patient reports abdominal pain is less, diarrhea is less. Patient reports he is feeling better. Spoke with patient and son/daughter at bedside. GI and General surgery on board. Discussed with GI fellow, recommended for general surgery given small bowel obstruction. Consult for Dr. Hill, noted performed exp lap in 09/18. GI started patient on IV Rocephin and IV Flagyl. Awaiting stool studies. Blood cultures were collected on admission Patient and son understands he is started on low dose Morphine extended release for pain relief. Assessment and Plan (1) Small bowel obstruction Assessment & Plan: * Stable * General Surgery consulted, Dr. Hill-->help appreciated * GI consulted, Dr. Weiss-->help appreciated * Management as per recommendation * Imaging: Abdominal Obstructive series: Findings concerning for mechanical small-bowel obstruction. No free intraperitoneal air. Bilateral hilar lymphadenopathy. 10 mm left basilar pulmonary nodule. * Patient is NPO * Patient is on IV abx * Patient reports diarrhea; pending stool studies * Patient has hx of adenocarcinoma of small intestine Status: Acute (2) Adenocarcinoma of small intestine, stage 4 Assessment & Plan: * With lung metastases * Heme/Onc Consult: Dr. Hart --> help appreciated-->Chemotherapy on hold due to leukopenia * Palliative Consult: Ruth --> help appreciated * General Surgery, Dr. Hill---> Help appreciated * Imaging: Abdomen/Pelvis CT ( 06/13/17):Enlarged prostate gland with radiation seeds within and stable metastatic lymph nodes in the pelvis, the largest anterior to the left common iliac artery. Fatty liver and stable simple cyst in the right hepatic lobe. Few subcentimeter scattered lesions in the liver are too small to characterize by CT criteria. Pulmonary metastasis and bilateral hilar adenopathy, larger on the right. * Abdomen/Pelvis CT ( 04/17/17): Innumerable new pulmonary metastasis the preponderance of which are 1 cm or less. The largest nodules in the lower lobe are all less than 1.6 cm. Status: Acute (3) Abdominal pain Assessment & Plan: * Possibly secondary to small bowel adenocarcinoma vs. infection vs SBO * GI consult: Dr. Weiss --> help appreciated * General Surgery, Dr. Hill-->help appreciated * Obstructive Series (06/23/17): Findings concerning for mechanical small-bowel obstruction. No free intraperitonneal air. Bilateral hilar lymphadenopathy. 10mm left basilar pulmonary nodule. - Medications: * Morphine IV 1mg PRN Q4H * MS Contin 15mg PO Q12H * Lactated Ringers 130mg/kg/hr * Zofran 4mg IV q6h PRN for nausea Status: Acute (4) Diarrhea Assessment & Plan: * Gastrointestinal consulted, Dr. Weiss-->help appreciated * Labs: F/u stool culture, ova and parasite, Cryptosporidium, Giardia, fecal leukocytes Medicatons: * Switched to IV rocephin and IV flagyl per GI Status: Acute (5) Leukopenia Assessment & Plan: * Possibly secondary to chemotherapy for Stage IV small bowel adenocarcinoma with mets to the lungs Low WBC * Continue to monitor * Chemotherapy on hold due to neutropenia Status: Acute (6) Bandemia Assessment & Plan: * Afebrile, monitor bandemia * Patient had blood cultures collected on admission * IV Abx started by GI * Continue to monitor * R/O infection with stool studies and Status: Acute (7) Prophylactic measure Assessment & Plan: - SCDs - Heparin 5000 U SC Q8H - Pepcid 20mg PO daily -Florastor 250mg PO BID Status: Acute
--- NOTE | 2017-06-24 15:58 | CP.PCM.CON ---
<Noelle Gallardo - Last Filed: 06/24/17 17:06> History of Present Illness - History of Present Illness History of Present Illness: Gastroenterology Fellow/PGY5 Consult Note 76 year old male with history of Prostate cancer s/p brachytherapy and SIV small bowel moderately differentiated adenocarcinoma with lung metastases (2016) s/p proximal resection with [id number] anastomosis 09/2015 on chemotherapy (5-FU/irinotecan- last dose 06/15/17) presenting with abdominal pain and diarrhea. Patient describes chronic intermittent mid-abdominal pain for the last year. he notes progression of symptoms to constant daily discomfort for the last two weeks. Associated watery diarrhea 3-4 times a day for the last eleven days. Denies exacerbation of symptoms postprandial. Associated distension, loss of appetite, and heartburn. Tolerating liquid diet with last solid food intake being Thursday (5 days ago). Denies nausea, vomiting , hematemesis, dysphagia, odynophagia, constipation, melena, hematochezia, sick contacts, or recent antibiotics. Notes endorsed unintentional 100 pound weight loss in the last year but on record review ~ 10 pound weight loss in last 12-18 months. Notes symptoms are similar to presentation leading to diagnosis of small bowel carcinoma. Admits to travelling to [place] three months ago. No prior EGD or colonoscopy. Family- Dad- Prostate cancer, denies stomach cancer or colon cancer Social- denies tobacco, alcohol, illicit drug use Surgery- 09/2015- small bowel resection with [id number] anastomosis, 10/2015- port-a-cath, 05/2017- lung biopsy Review of Systems - Review of Systems Review of Systems: 12-point review of systems negative except for as above Past Patient History - Infectious Disease Hx of Infectious Diseases: None - Past Medical History & Family History Past Medical History?: Yes - Past Social History Smoking Status: Former Smoker - CARDIAC Hx Cardiac Disorders: No Hx Hypertension: Yes - PULMONARY Other/Comment: lung cancer - NEUROLOGICAL Hx Neurological Disorder: No - HEENT Hx HEENT Problems: No - RENAL Hx Chronic Kidney Disease: No - ENDOCRINE/METABOLIC Hx Endocrine Disorders: No - HEMATOLOGICAL/ONCOLOGICAL Hx Cancer: Yes (LUNG/Colon) Other/Comment: Thursday Chemo - INTEGUMENTARY Hx Dermatological Problems: No - MUSCULOSKELETAL/RHEUMATOLOGICAL Hx Musculoskeletal Disorders: No - GASTROINTESTINAL Hx Gastritis: Yes - GENITOURINARY/GYNECOLOGICAL Hx Genitourinary Disorders: Yes Hx Prostate Cancer: Yes (RESOLVED 5YRS AGO) - PSYCHIATRIC Hx Substance Use: No - SURGICAL HISTORY Hx Surgeries: Yes Other/Comment: 09/21/15-LAPAROTOMY WITH RESECTION OF SMALL BOWEL AND SIDE TO SIDE ANASTAMOSIS. - ANESTHESIA Hx Anesthesia: Yes Hx Anesthesia Reactions: No Hx Malignant Hyperthermia: No Meds Allergies/Adverse Reactions: Allergies Allergy/AdvReac Type Severity Reaction Status Date / Time No Known Allergies Allergy Verified 06/22/17 10:15 - Medications Medications: Current Medications Ciprofloxacin (Cipro) 500 mg PO BID [facility] Famotidine (Pepcid) 20 mg PO DAILY [facility] Last Admin: 06/24/17 11:16 Dose: 20 mg Heparin Sodium (Porcine) (Heparin) 5,000 units SC Q8 [facility] Last Admin: 06/24/17 14:10 Dose: 5,000 units Metronidazole (Flagyl) 500 mg PO Q8H [facility] Last Admin: 06/24/17 12:00 Dose: 500 mg Morphine Sulfate (Morphine Extended Release Tab) 15 mg PO Q12 [facility] Last Admin: 06/24/17 11:17 Dose: Not Given Morphine Sulfate (Morphine) 1 mg IV Q4 PRN PRN Reason: Pain, moderate (4-7) Last Admin: 06/24/17 15:21 Dose: 1 mg Ondansetron HCl (Zofran Inj) 4 mg IVP Q6H PRN PRN Reason: Nausea/Vomiting Oxycodone HCl (Oxycodone Immediate Release Tab) 5 mg PO Q6 PRN PRN Reason: Pain, Mild (1-3) Physical Exam - Constitutional Appears: Non-toxic, No Acute Distress, Chronically Ill - Head Exam Head Exam: ATRAUMATIC, NORMOCEPHALIC - Eye Exam Eye Exam: EOMI, PERRL Pupil Exam: PERRL. absent: Miosis, Mydriatic - ENT Exam ENT Exam: Mucous Membranes Moist, Normal Oropharynx - Neck Exam Neck exam: Positive for: Full Rom, Normal Inspection - Respiratory Exam Respiratory Exam: Clear to Auscultation Bilateral. absent: Rales, Rhonchi, Wheezes - Cardiovascular Exam Cardiovascular Exam: RRR, +S1, +S2. absent: Gallop, Rubs - GI/Abdominal Exam GI & Abdominal Exam: Hyperactive Bowel Sounds, Soft, Tenderness. absent: Distended, Firm, Guarding, Organomegaly, Rebound, Rigid Additional comments: high-pitched tinkles, mild dennis-umbilical tenderness to palpation - Extremities Exam Extremities exam: Positive for: normal inspection. Negative for: pedal edema - Neurological Exam Neurological exam: Alert - Psychiatric Exam Psychiatric exam: Normal Affect, Normal Mood - Skin Skin Exam: Dry, Intact, Normal Color, Warm Results - Vital Signs Recent Vital Signs: Last Vital Signs Temp 98.2 F 06/24/17 08:03 Pulse 82 06/24/17 15:09 Resp 20 06/24/17 08:03 BP 112/78 06/24/17 15:09 Pulse Ox 98 06/24/17 15:09 - Labs Result Diagrams: 06/24/17 07:22 06/24/17 07:22 Labs: Laboratory Results - last 24 hr 06/23/17 06/24/17 06/24/17 23:16 07:22 07:22 WBC 2.9 L RBC 4.68 Hgb 13.9 Hct 41.4 MCV 88.4 MCH 29.7 MCHC 33.6 RDW 13.1 Plt Count 170 MPV 10.3 Neut % (Auto) 54.1 Lymph % (Auto) 24.1 [place] % (Auto) 21.1 H Eos % (Auto) 0.6 Baso % (Auto) 0.1 Neut # 1.6 L Lymph # 0.7 L [place] # 0.6 Eos # 0.0 Baso # 0.0 Neutrophils % (Manual) 20 L Band Neutrophils % 26 H* Lymphocytes % (Manual) 23 Monocytes % (Manual) 29 H Eosinophils % (Manual) 2 Nucleated RBC % 1 H Platelet Estimate Normal RBC Morphology Normal Sodium 131 L Potassium 3.8 Chloride 96 L Carbon Dioxide 26 Anion Gap 13 BUN 22 H Creatinine 1.0 Est GFR ( Amer) > 60 Est GFR (Non-Af Amer) > 60 Random Glucose 111 H Calcium 8.3 L Phosphorus 3.8 Magnesium 1.8 Total Bilirubin 1.8 H Direct Bilirubin 0.7 H AST 20 ALT 33 Alkaline Phosphatase 70 Total Protein 6.4 Albumin 3.4 L Globulin 3.0 Albumin/Globulin Ratio 1.1 Carcinoembryonic Ag 4.0 H Urine Color Yellow Urine Clarity Clear Urine pH 5.0 Ur Specific [place] 1.023 Urine Protein Negative Urine Glucose (UA) Normal Urine Ketones Trace Urine Blood Negative Urine Nitrate Negative Urine Bilirubin Negative Urine Urobilinogen Normal Ur Leukocyte Esterase Neg Urine WBC (Auto) 1 Urine RBC (Auto) 2 Urine Bacteria Rare Assessment & Plan - Assessment and Plan (Free Text) Assessment: 76 year old male with history of Prostate cancer s/p brachytherapy and Stage IV small bowel moderately differentiated adenocarcinoma with lung metastases (2016) s/p proximal resection with [id number] anastomosis 09/2015 on chemotherapy (5-FU/irinotecan- last dose 06/15/17) presenting with abdominal pain and diarrhea. Obstructive series showing possible SBO and recent CT A/P 06/13/17 showing likely hepatic and lymph node metastases. No prior EGD or colonoscopy. Plan: >DDx: chemotherapy induced diarrhea, infectious enteritis, surgical adhesions with prior anastomosis, tumor recurrence >tolerating clear liquid diet >switch antibiotics to ceftriaxone/flagyl IV for improved penetrance with worsening bacteremia >pending stool infectious workup >surgery following- appreciate recommendations >supportive care: pain control, anti-emetics, [id number] >will benefit from elective outpatient EGD and colonoscopy for small bowel cancer s/p resection surveillance and CRC screening >will follow clinical course <Tremaine Weiss - Last Filed: 06/24/17 17:36> Meds - Medications Medications: Current Medications Famotidine (Pepcid) 20 mg PO DAILY [facility] Last Admin: 06/24/17 11:16 Dose: 20 mg Heparin Sodium (Porcine) (Heparin) 5,000 units SC Q8 [facility] Last Admin: 06/24/17 14:10 Dose: 5,000 units Ceftriaxone Sodium (Rocephin Iv 1 Gm Duplex) 50 mls @ 100 mls/hr IVPB Q24H [facility] Metronidazole (Flagyl) 500 mg in 100 mls @ 100 mls/hr IVPB Q8 [facility] Morphine Sulfate (Morphine Extended Release Tab) 15 mg PO Q12 [facility] Last Admin: 06/24/17 11:17 Dose: Not Given Morphine Sulfate (Morphine) 1 mg IV Q4 PRN PRN Reason: Pain, moderate (4-7) Last Admin: 06/24/17 15:21 Dose: 1 mg Ondansetron HCl (Zofran Inj) 4 mg IVP Q6H PRN PRN Reason: Nausea/Vomiting Oxycodone HCl (Oxycodone Immediate Release Tab) 5 mg PO Q6 PRN PRN Reason: Pain, Mild (1-3) Results - Vital Signs Recent Vital Signs: Last Vital Signs Temp 97.9 F 06/24/17 15:00 Pulse 82 06/24/17 15:09 Resp 20 06/24/17 15:00 BP 112/78 06/24/17 15:09 Pulse Ox 98 06/24/17 15:09 - Labs Result Diagrams: 06/24/17 07:22 06/24/17 07:22 Labs: Laboratory Results - last 24 hr 06/23/17 06/24/17 06/24/17 23:16 07:22 07:22 WBC 2.9 L RBC 4.68 Hgb 13.9 Hct 41.4 MCV 88.4 MCH 29.7 MCHC 33.6 RDW 13.1 Plt Count 170 MPV 10.3 Neut % (Auto) 54.1 Lymph % (Auto) 24.1 [place] % (Auto) 21.1 H Eos % (Auto) 0.6 Baso % (Auto) 0.1 Neut # 1.6 L Lymph # 0.7 L [place] # 0.6 Eos # 0.0 Baso # 0.0 Neutrophils % (Manual) 20 L Band Neutrophils % 26 H* Lymphocytes % (Manual) 23 Monocytes % (Manual) 29 H Eosinophils % (Manual) 2 Nucleated RBC % 1 H Platelet Estimate Normal RBC Morphology Normal Sodium 131 L Potassium 3.8 Chloride 96 L Carbon Dioxide 26 Anion Gap 13 BUN 22 H Creatinine 1.0 Est GFR ( Amer) > 60 Est GFR (Non-Af Amer) > 60 Random Glucose 111 H Calcium 8.3 L Phosphorus 3.8 Magnesium 1.8 Total Bilirubin 1.8 H Direct Bilirubin 0.7 H AST 20 ALT 33 Alkaline Phosphatase 70 Total Protein 6.4 Albumin 3.4 L Globulin 3.0 Albumin/Globulin Ratio 1.1 Carcinoembryonic Ag 4.0 H Urine Color Yellow Urine Clarity Clear Urine pH 5.0 Ur Specific [place] 1.023 Urine Protein Negative Urine Glucose (UA) Normal Urine Ketones Trace Urine Blood Negative Urine Nitrate Negative Urine Bilirubin Negative Urine Urobilinogen Normal Ur Leukocyte Esterase Neg Urine WBC (Auto) 1 Urine RBC (Auto) 2 Urine Bacteria Rare Attending/Attestation - Attestation I have personally seen and examined this patient.: Yes I have fully participated in the care of the patient.: Yes I have reviewed all pertinent clinical information: Yes Notes (Text): 06/24/17 17:29 I have seen and examined patient with GI fellow. Agree with above documentation with the following additions. In brief, this is a 76 year old male with history of prostate cancer, small bowel adenocarcinoma s/p surgical resection on chemotherapy, recently diagnosed metastatic disease to lungs who presents to hospital with complaint of abdominal pain and diarrhea. He describes long standing abdominal pain over the past one year which has progressed over the past two weeks, located in epigastric region, non-radiating , 7/10 intensity that is not related to food consumption. He does report associated non-bloody diarrhea with 3-4 episodes daily during this time period. He does report a weight loss of about 10 pounds over the past two months. He denies nausea, vomiting, fever/chills, sick contacts, or recent antibiotic use. He did travel to [place] 3 months ago and had an EGD there 1 year ago which was normal as per patient. No prior colonoscopy. History of prostate cancer History of small bowel adenocarcinoma s/p surgical resection, on chemotherapy with recently diagnosed metastatic disease to lungs Abdominal pain Diarrhea XR obstructive series reviewed by me showing dilated loops of small bowel with air/fluid levels consistent with small bowel obstruction - Clear liquid diet as tolerated, no clinical indication for NGT decompression at this time - Serial abdominal examinations - Begin antibiotic therapy with ceftriaxone/flagyl - Obtain blood cultures, stool studies - Follow surgical recommendations - Follow oncology recommendations - Patient would benefit from outpatient colonoscopy following resolution of acute symptoms. Will continue to monitor patient clinical course.
--- NOTE | 2017-06-24 16:39 | CP.PCM.CON ---
History of Present Illness - History of Present Illness History of Present Illness: General Surgery Consult for Reason for Consult: Abdominal pain British translation provided by [employer] Wilbur#[id number] M with PMH of prostate CA and small bowel CA s/p resection presents with abdominal pain starting about 1 month ago. He states that he has never had this pain before. He reports a gradual onset and states that it has gotten progressively worse over the last 6 days. Patient had last round of chemotherapy about 1 week ago. He gets chemotherapy twice per week. He rates pain as moderate. He describes it as constant and generalized located diffusely in abdomen without radiation. He report associated 3-4 episodes of watery diarrhea per day and anorexia. As per patient, he went to see who sent him to the ED. Denies any alleviating or exacerbating factors. Denies fever/chills, nausea/vomiting, melena, hematochezia, hematemesis. PMD/HemeOnc: Dr. 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 absent: Hematochezia, Melena, Nausea, Vomiting - Genitourinary Genitourinary: absent: Difficulty Urinating, Dysuria - Integumentary Integumentary: absent: Erythema, Lesions - Neurological Neurological: absent: Dizziness, Headaches - Psychiatric Psychiatric: absent: Homicidal Ideation, Suicidal Ideation - Endocrine Endocrine: absent: Fatigue, Palpitations - Hematologic/Lymphatic Hematologic: absent: Easy Bleeding, Easy Bruising, Lymphadenopathy Past Patient History - Infectious Disease Hx of Infectious Diseases: None - Past Medical History & Family History Past Medical History?: Yes - Past Social History Smoking Status: Former Smoker Alcohol: None Drugs: Denies - CARDIAC Hx Cardiac Disorders: No Hx Hypertension: Yes - PULMONARY Other/Comment: lung cancer - NEUROLOGICAL Hx Neurological Disorder: No - HEENT Hx HEENT Problems: No - RENAL Hx Chronic Kidney Disease: No - ENDOCRINE/METABOLIC Hx Endocrine Disorders: No - HEMATOLOGICAL/ONCOLOGICAL Hx Cancer: Yes (LUNG/Colon) Other/Comment: Thursday Chemo - INTEGUMENTARY Hx Dermatological Problems: No - MUSCULOSKELETAL/RHEUMATOLOGICAL Hx Musculoskeletal Disorders: No - GASTROINTESTINAL Hx Gastritis: Yes - GENITOURINARY/GYNECOLOGICAL Hx Genitourinary Disorders: Yes Hx Prostate Cancer: Yes (RESOLVED 5YRS AGO) - PSYCHIATRIC Hx Substance Use: No - SURGICAL HISTORY Hx Surgeries: Yes Other/Comment: 09/21/15-LAPAROTOMY WITH RESECTION OF SMALL BOWEL AND SIDE TO SIDE ANASTAMOSIS. - ANESTHESIA Hx Anesthesia: Yes Hx Anesthesia Reactions: No Hx Malignant Hyperthermia: No Meds Allergies/Adverse Reactions: Allergies Allergy/AdvReac Type Severity Reaction Status Date / Time No Known Allergies Allergy Verified 06/22/17 10:15 - Medications Medications: Current Medications Ciprofloxacin (Cipro) 500 mg PO BID [facility] Famotidine (Pepcid) 20 mg PO DAILY [facility] Last Admin: 06/24/17 11:16 Dose: 20 mg Heparin Sodium (Porcine) (Heparin) 5,000 units SC Q8 [facility] Last Admin: 06/24/17 14:10 Dose: 5,000 units Metronidazole (Flagyl) 500 mg PO Q8H [facility] Last Admin: 06/24/17 12:00 Dose: 500 mg Morphine Sulfate (Morphine Extended Release Tab) 15 mg PO Q12 [facility] Last Admin: 06/24/17 11:17 Dose: Not Given Morphine Sulfate (Morphine) 1 mg IV Q4 PRN PRN Reason: Pain, moderate (4-7) Last Admin: 06/24/17 15:21 Dose: 1 mg Ondansetron HCl (Zofran Inj) 4 mg IVP Q6H PRN PRN Reason: Nausea/Vomiting Oxycodone HCl (Oxycodone Immediate Release Tab) 5 mg PO Q6 PRN PRN Reason: Pain, Mild (1-3) Physical Exam - Constitutional Appears: No Acute Distress, Chronically Ill - Head Exam Head Exam: ATRAUMATIC, NORMOCEPHALIC - Eye Exam Eye Exam: EOMI, Normal appearance Pupil Exam: PERRL - ENT Exam ENT Exam: Mucous Membranes Dry - Neck Exam Neck exam: Positive for: Full Rom - Respiratory Exam Respiratory Exam: Decreased Breath Sounds, NORMAL BREATHING PATTERN. absent: Accessory Muscle Use, Rales, Rhonchi, Wheezes - Cardiovascular Exam Cardiovascular Exam: REGULAR RHYTHM, +S1, +S2 - GI/Abdominal Exam GI & Abdominal Exam: Normal Bowel Sounds, Soft, Tenderness (diffuse tenderness) . absent: Distended, Firm, Guarding, Rebound - Extremities Exam Extremities exam: Positive for: normal capillary refill, pedal pulses present. Negative for: pedal edema, tenderness - Neurological Exam Neurological exam: Alert, CN II-XII Intact, Oriented x3 - Psychiatric Exam Psychiatric exam: Normal Affect, Normal Mood - Skin Skin Exam: Dry, Normal Color, Warm Results - Vital Signs Recent Vital Signs: Last Vital Signs Temp 98.2 F 06/24/17 08:03 Pulse 82 06/24/17 15:09 Resp 20 06/24/17 08:03 BP 112/78 06/24/17 15:09 Pulse Ox 98 06/24/17 15:09 - Labs Result Diagrams: 06/24/17 07:22 06/24/17 07:22 Labs: Laboratory Results - last 24 hr 06/23/17 06/24/17 06/24/17 23:16 07:22 07:22 WBC 2.9 L RBC 4.68 Hgb 13.9 Hct 41.4 MCV 88.4 MCH 29.7 MCHC 33.6 RDW 13.1 Plt Count 170 MPV 10.3 Neut % (Auto) 54.1 Lymph % (Auto) 24.1 [place] % (Auto) 21.1 H Eos % (Auto) 0.6 Baso % (Auto) 0.1 Neut # 1.6 L Lymph # 0.7 L [place] # 0.6 Eos # 0.0 Baso # 0.0 Neutrophils % (Manual) 20 L Band Neutrophils % 26 H* Lymphocytes % (Manual) 23 Monocytes % (Manual) 29 H Eosinophils % (Manual) 2 Nucleated RBC % 1 H Platelet Estimate Normal RBC Morphology Normal Sodium 131 L Potassium 3.8 Chloride 96 L Carbon Dioxide 26 Anion Gap 13 BUN 22 H Creatinine 1.0 Est GFR ( Amer) > 60 Est GFR (Non-Af Amer) > 60 Random Glucose 111 H Calcium 8.3 L Phosphorus 3.8 Magnesium 1.8 Total Bilirubin 1.8 H Direct Bilirubin 0.7 H AST 20 ALT 33 Alkaline Phosphatase 70 Total Protein 6.4 Albumin 3.4 L Globulin 3.0 Albumin/Globulin Ratio 1.1 Carcinoembryonic Ag 4.0 H Urine Color Yellow Urine Clarity Clear Urine pH 5.0 Ur Specific [place] 1.023 Urine Protein Negative Urine Glucose (UA) Normal Urine Ketones Trace Urine Blood Negative Urine Nitrate Negative Urine Bilirubin Negative Urine Urobilinogen Normal Ur Leukocyte Esterase Neg Urine WBC (Auto) 1 Urine RBC (Auto) 2 Urine Bacteria Rare Assessment & Plan - Assessment and Plan (Free Text) Assessment: 76 M with PMH of SBO, 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
[2017-06-24] MEDS: cefTRIAXone IV 1 gm in Dextros 50 ML IVPB SCH (18:16)
[2017-06-24] MEDS: metroNIDAZOLE IV 500 mg/100 ml 500 MG/100 ML BAG IVPB SCH (21:14)
[2017-06-25] MEDS: metroNIDAZOLE IV 500 mg/100 ml 500 MG/100 ML BAG IVPB SCH ×3 (05:51→21:39)
[2017-06-25 07:12] LABS: BASO % 0.1 % (0.0-2.0); EOS % 0.1 % (0.0-4.0); HEMATOCRIT 39.2 % (35.0-51.0); LYMPH # 0.7 K/uL (1.0-4.3); LYMPH % 21.6 % (20.0-40.0); MEAN CELL VOLUME 88.3 fL (80.0-94.0); MEAN CORPUSCULAR HEMOGLOBIN 30.3 pg (27.0-31.0); MEAN CORPUSCULAR HGB CONC 34.3 g/dL (33.0-37.0); MEAN PLATELET VOLUME 9.6 fL (7.2-11.7); MONO # 0.6 K/uL (0.0-0.8); MONO % 18.1 % (0.0-10.0); NRBC % 0.1 % (0.0-2.0); RED CELL DISTRIBUTION WIDTH 13.5 % (11.5-14.5); WHITE BLOOD COUNT 3.3 K/uL (4.8-10.8)
--- NOTE | 2017-06-25 07:25 | CP.PCM.PN ---
Subjective - Date & Time of Evaluation Date of Evaluation: 06/25/17 Time of Evaluation: 07:20 - Subjective Subjective: General Surgery Note for Dr. Hill Patient seen and examined at bedside. No acute event overnight. Patient is lying in bed comfortably. Patient is on heart healthy diet but only drinking liquids due to throat pain. Patient states he is feeling slightly better than yesterday. He is denying pain at this time. (+) flatus and (+) BM. He has no other complaints. Objective - Vital Signs/Intake and Output Vital Signs (last 24 hours): Temp Pulse Resp BP Pulse Ox 97.9 F 82 20 112/78 98 06/24/17 15:00 06/24/17 15:09 06/24/17 15:00 06/24/17 15:09 06/24/17 15:09 Intake and Output: 06/25/17 06/25/17 06:59 18:59 Intake Total 350 Balance 350 - Medications Medications: Current Medications Famotidine (Pepcid) 20 mg PO DAILY [facility] Last Admin: 06/24/17 11:16 Dose: 20 mg Heparin Sodium (Porcine) (Heparin) 5,000 units SC Q8 [facility] Last Admin: 06/25/17 05:50 Dose: 5,000 units Ceftriaxone Sodium (Rocephin Iv 1 Gm Duplex) 50 mls @ 100 mls/hr IVPB Q24H [facility] Last Admin: 06/24/17 18:16 Dose: 100 mls/hr Metronidazole (Flagyl) 500 mg in 100 mls @ 100 mls/hr IVPB Q8 [facility] Last Admin: 06/25/17 05:51 Dose: 100 mls/hr Morphine Sulfate (Morphine Extended Release Tab) 15 mg PO Q12 [facility] Last Admin: 06/24/17 22:10 Dose: Not Given Morphine Sulfate (Morphine) 1 mg IV Q4 PRN PRN Reason: Pain, moderate (4-7) Last Admin: 06/24/17 15:21 Dose: 1 mg Ondansetron HCl (Zofran Inj) 4 mg IVP Q6H PRN PRN Reason: Nausea/Vomiting Oxycodone HCl (Oxycodone Immediate Release Tab) 5 mg PO Q6 PRN PRN Reason: Pain, Mild (1-3) - Labs Labs: 06/24/17 07:22 06/24/17 07:22 PT 17.2 SECONDS (9.7-12.2) H 06/23/17 13:46 INR 1.5 06/23/17 13:46 APTT 28 SECONDS (21-34) 06/23/17 13:46 - Constitutional Appears: No Acute Distress, Chronically Ill - Head Exam Head Exam: ATRAUMATIC, NORMOCEPHALIC - Eye Exam Eye Exam: EOMI, Normal appearance - ENT Exam ENT Exam: Mucous Membranes Moist - Respiratory Exam Respiratory Exam: NORMAL BREATHING PATTERN - Cardiovascular Exam Cardiovascular Exam: REGULAR RHYTHM - GI/Abdominal Exam GI & Abdominal Exam: Soft. 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 Hart, help appreciated - Discussed with Dr.Brahmbhatt Jose Alfredo Purvis PGY1
--- NOTE | 2017-06-25 07:28 | CP.PCM.PN ---
Objective - Vital Signs/Intake and Output Vital Signs (last 24 hours): Temp Pulse Resp BP Pulse Ox 97.9 F 82 20 112/78 98 06/24/17 15:00 06/24/17 15:09 06/24/17 15:00 06/24/17 15:09 06/24/17 15:09 Intake and Output: 06/25/17 06/25/17 06:59 18:59 Intake Total 350 Balance 350 - Medications Medications: Current Medications Famotidine (Pepcid) 20 mg PO DAILY [facility] Last Admin: 06/24/17 11:16 Dose: 20 mg Heparin Sodium (Porcine) (Heparin) 5,000 units SC Q8 [facility] Last Admin: 06/25/17 05:50 Dose: 5,000 units Ceftriaxone Sodium (Rocephin Iv 1 Gm Duplex) 50 mls @ 100 mls/hr IVPB Q24H [facility] Last Admin: 06/24/17 18:16 Dose: 100 mls/hr Metronidazole (Flagyl) 500 mg in 100 mls @ 100 mls/hr IVPB Q8 [facility] Last Admin: 06/25/17 05:51 Dose: 100 mls/hr Morphine Sulfate (Morphine Extended Release Tab) 15 mg PO Q12 [facility] Last Admin: 06/24/17 22:10 Dose: Not Given Morphine Sulfate (Morphine) 1 mg IV Q4 PRN PRN Reason: Pain, moderate (4-7) Last Admin: 06/24/17 15:21 Dose: 1 mg Ondansetron HCl (Zofran Inj) 4 mg IVP Q6H PRN PRN Reason: Nausea/Vomiting Oxycodone HCl (Oxycodone Immediate Release Tab) 5 mg PO Q6 PRN PRN Reason: Pain, Mild (1-3) - Labs Labs: 06/24/17 07:22 06/24/17 07:22 PT 17.2 SECONDS (9.7-12.2) H 06/23/17 13:46 INR 1.5 06/23/17 13:46 APTT 28 SECONDS (21-34) 06/23/17 13:46
[2017-06-25 07:29] LABS: ALKALINE PHOSPHATASE 66 U/L (38-126); ALT/SGPT 27 U/L (21-72); AST/SGOT 20 U/L (17-59); BILIRUBIN,TOTAL 1.2 mg/dL (0.2-1.3); BLOOD UREA NITROGEN 21 mg/dL (9-20); CALCIUM 8.4 mg/dl (8.6-10.4); CARBON DIOXIDE 24 mmol/L (22-30); CHLORIDE 97 mmol/L (98-107); GFR AFRICAN-AMERICAN > 60; GLUCOSE,RANDOM 98 mg/dL (75-110); MAGNESIUM 1.9 mg/dL (1.6-2.3); PHOSPHOROUS 4.3 mg/dL (2.5-4.5); POTASSIUM 3.6 mmol/L (3.6-5.2); SODIUM 132 mmol/L (132-148); TOTAL PROTEIN 6.2 g/dL (6.3-8.3)
[2017-06-25 07:56] LABS: ALB/GLOB RATIO 1.1 (1.0-2.1)
--- NOTE | 2017-06-25 08:28 | CP.PCM.PN ---
Subjective - Date & Time of Evaluation Date of Evaluation: 06/25/17 Time of Evaluation: 08:24 - Subjective Subjective: Patient seen and examined, resting comfortably in bed. No acute events overnight. He continues to endorse sharp epigastric/dennis-umbilical abdominal pain, no bowel movements overnight. He denies nausea, vomiting, fever/chills. Review of vitals from today are normal. 12 point review of systems performed, negative aside from mentioned above. Objective - Vital Signs/Intake and Output Vital Signs (last 24 hours): Temp Pulse Resp BP Pulse Ox 97.8 F 87 20 117/80 96 06/25/17 08:18 06/25/17 08:18 06/25/17 08:18 06/25/17 08:18 06/25/17 08:18 Intake and Output: 06/25/17 06/25/17 06:59 18:59 Intake Total 350 280 Balance 350 280 - Medications Medications: Current Medications Famotidine (Pepcid) 20 mg PO DAILY [facility] Last Admin: 06/24/17 11:16 Dose: 20 mg Heparin Sodium (Porcine) (Heparin) 5,000 units SC Q8 [facility] Last Admin: 06/25/17 05:50 Dose: 5,000 units Ceftriaxone Sodium (Rocephin Iv 1 Gm Duplex) 50 mls @ 100 mls/hr IVPB Q24H [facility] Last Admin: 06/24/17 18:16 Dose: 100 mls/hr Metronidazole (Flagyl) 500 mg in 100 mls @ 100 mls/hr IVPB Q8 [facility] Last Admin: 06/25/17 05:51 Dose: 100 mls/hr Morphine Sulfate (Morphine Extended Release Tab) 15 mg PO Q12 [facility] Last Admin: 06/24/17 22:10 Dose: Not Given Morphine Sulfate (Morphine) 1 mg IV Q4 PRN PRN Reason: Pain, moderate (4-7) Last Admin: 06/24/17 15:21 Dose: 1 mg Ondansetron HCl (Zofran Inj) 4 mg IVP Q6H PRN PRN Reason: Nausea/Vomiting Oxycodone HCl (Oxycodone Immediate Release Tab) 5 mg PO Q6 PRN PRN Reason: Pain, Mild (1-3) - Labs Labs: 06/25/17 07:01 06/25/17 07:01 PT 17.2 SECONDS (9.7-12.2) H 06/23/17 13:46 INR 1.5 06/23/17 13:46 APTT 28 SECONDS (21-34) 06/23/17 13:46 - Constitutional Appears: Non-toxic, No Acute Distress - Head Exam Head Exam: NORMAL INSPECTION - Eye Exam Eye Exam: EOMI, Normal appearance - ENT Exam ENT Exam: Mucous Membranes Moist - Respiratory Exam Respiratory Exam: Clear to Ausculation Bilateral - Cardiovascular Exam Cardiovascular Exam: +S1, +S2 - GI/Abdominal Exam GI & Abdominal Exam: Soft, Tenderness, Hypoactive Bowel Sounds Additional comments: dennis-umbilical tenderness to palpation, no rebound/guarding - Extremities Exam Extremities Exam: Normal Inspection - Skin Skin Exam: Dry, Intact, Normal Color, Warm Assessment and Plan - Assessment and Plan (Free Text) Assessment: History of prostate cancer 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 He will require outpatient elective colonoscopy following resolution of acute symptoms.
[2017-06-25] MEDS ORDERED: Influenza Vaccine 60 mcg/0.5 mL SYR (4YR UP) IM ONE (10:00)
[2017-06-25] MEDS: Morphine 15 mg SR Tab PO SCH ×2 (10:12→21:38)
--- NOTE | 2017-06-25 10:42 | CP.PCM.PN ---
Subjective - Date & Time of Evaluation Date of Evaluation: 06/25/17 Time of Evaluation: 10:35 - Subjective Subjective: Medical Attending note: Patient seen and examined with daughter at bedside. Patient reports diarrhea, but reports it is less. patient has hoff contained for stool study sample. Instructed nurse at bedside to send to the lab. Patient denies headache, denies fever, denies chills, denies chest pain, denies nausea, denies vomitting, reports abdominal pain, which he characterizes as gas pains 8/10 reports he thinks new pain medication is helping, denies dysuria, denies hematuria. Objective - Vital Signs/Intake and Output Vital Signs (last 24 hours): Temp Pulse Resp BP Pulse Ox 97.8 F 87 20 117/80 96 06/25/17 08:18 06/25/17 08:18 06/25/17 08:18 06/25/17 08:18 06/25/17 08:18 Intake and Output: 06/25/17 06/25/17 06:59 18:59 Intake Total 350 280 Balance 350 280 - Medications Medications: Current Medications Famotidine (Pepcid) 20 mg PO DAILY [facility] Last Admin: 06/25/17 10:10 Dose: 20 mg Heparin Sodium (Porcine) (Heparin) 5,000 units SC Q8 [facility] Last Admin: 06/25/17 05:50 Dose: 5,000 units Ceftriaxone Sodium (Rocephin Iv 1 Gm Duplex) 50 mls @ 100 mls/hr IVPB Q24H [facility] Last Admin: 06/24/17 18:16 Dose: 100 mls/hr Metronidazole (Flagyl) 500 mg in 100 mls @ 100 mls/hr IVPB Q8 [facility] Last Admin: 06/25/17 05:51 Dose: 100 mls/hr Morphine Sulfate (Morphine Extended Release Tab) 15 mg PO Q12 [facility] Last Admin: 06/25/17 10:12 Dose: Not Given Morphine Sulfate (Morphine) 1 mg IV Q4 PRN PRN Reason: Pain, moderate (4-7) Last Admin: 06/24/17 15:21 Dose: 1 mg Ondansetron HCl (Zofran Inj) 4 mg IVP Q6H PRN PRN Reason: Nausea/Vomiting Oxycodone HCl (Oxycodone Immediate Release Tab) 5 mg PO Q6 PRN PRN Reason: Pain, Mild (1-3) - Labs Labs: 06/25/17 07:01 06/25/17 07:01 PT 17.2 SECONDS (9.7-12.2) H 06/23/17 13:46 INR 1.5 06/23/17 13:46 APTT 28 SECONDS (21-34) 06/23/17 13:46 - Constitutional Appears: Non-toxic, No Acute Distress - Head Exam Head Exam: NORMAL INSPECTION - Eye Exam Eye Exam: EOMI - ENT Exam ENT Exam: Mucous Membranes Moist - Respiratory Exam Respiratory Exam: Clear to Ausculation Bilateral, NORMAL BREATHING PATTERN. absent: Rales, Rhonchi - Cardiovascular Exam Cardiovascular Exam: REGULAR RHYTHM, +S1, +S2 - GI/Abdominal Exam GI & Abdominal Exam: Soft, Tenderness, Normal Bowel Sounds. absent: Distended, Guarding, Rigid, Diminished Bowel Sounds, Rebound - Psychiatric Exam Psychiatric exam: Normal Affect, Normal Mood - Skin Skin Exam: Dry, Normal Color, Warm Assessment and Plan (1) Adenocarcinoma of small intestine, stage 4 Status: Acute (2) Bandemia Status: Acute (3) Small bowel carcinoma Status: Acute (4) Small bowel obstruction Status: Acute (5) Prophylactic measure Status: Acute - Assessment and Plan (Free Text) Assessment: Assessment and Plan (1) Small bowel obstruction Assessment & Plan: * Stable * General Surgery consulted, Dr. Hill-->help appreciated * GI consulted, Dr. Weiss-->help appreciated * Management as per recommendation * Imaging: Abdominal Obstructive series: Findings concerning for mechanical small-bowel obstruction. No free intraperitoneal air. Bilateral hilar lymphadenopathy. 10 mm left basilar pulmonary nodule. * Patient switched back to NPO. Patient had prior order when was in the ED for heart health. Was not advanced by medicine. Patient continues to complain about abdominal pain. 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 Hart --> help appreciated-->Chemotherapy on hold due to leukopenia * Palliative Consult: Ruth --> help appreciated * General Surgery, Dr. Hill---> Help appreciated * Imaging: Abdomen/Pelvis CT ( 06/13/17):Enlarged prostate gland with radiation seeds within and stable metastatic lymph nodes in the pelvis, the largest anterior to the left common iliac artery. Fatty liver and stable simple cyst in the right hepatic lobe. Few subcentimeter scattered lesions in the liver are too small to characterize by CT criteria. Pulmonary metastasis and bilateral hilar adenopathy, larger on the right. * Abdomen/Pelvis CT ( 04/17/17): Innumerable new pulmonary metastasis the preponderance of which are 1 cm or less. The largest nodules in the lower lobe are all less than 1.6 cm. Status: Acute (3) Abdominal pain Assessment & Plan: * Possibly secondary to small bowel adenocarcinoma vs. infection vs SBO * GI consult: Dr. Weiss --> help appreciated * General Surgery, Dr. Hill-->help appreciated * Obstructive Series (06/23/17): Findings concerning for mechanical small-bowel obstruction. No free intraperitonneal air. Bilateral hilar lymphadenopathy. 10mm left basilar pulmonary nodule. * patient is NPO (d/c heart health diet prior ED order) - Medications: * Morphine IV 1mg PRN Q4H * MS Contin 15mg PO Q12H * Lactated Ringers 130mg/kg/hr * Zofran 4mg IV q6h PRN for nausea Status: Acute (4) Diarrhea Assessment & Plan: * Gastrointestinal consulted, Dr. 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 * Improving * Heme onc is on board * Continue to monitor * Chemotherapy on hold due to neutropenia Status: Acute (6) Bandemia Assessment & Plan: * Afebrile, resolved * Blood cultures (06/23/17): no growth after 24hours X2 * Rocephin 1 gram IVQ24H (active since 06/24/17) * Flagyl 500mg IVQ8H (active since 06/24/17) * Continue to monitor * R/O infection with stool studies and Status: Acute (7) Prophylactic measure Assessment & Plan: - SCDs - Heparin 5000 U SC Q8H - Pepcid 20mg PO daily - Florastor 250mg PO BID - NPO Status: Acute Disposition: * Patient's diet in error in regards to heart healthy (prior order from ED). Patient switched back to NPO. Will defer to GI and General surgery to determine to advance diet. Nurse communication to indicate switch back to NPO. * Patient stool studies collected today * Patient is on 2nd of IV Abx
--- NOTE | 2017-06-25 17:02 | RAD ---
HISTORY: abdominal pain, small bowel obstruction COMPARISON: Comparison is made to 09/20/2015 FINDINGS: BOWEL: Moderately dilated small and large bowel loops filled with air are noted in the entire abdomen and pelvis. Air-fluid level seen. BONES: Normal. OTHER FINDINGS: Prostate seeds are seen in place. IMPRESSION: Dilated bowel loops in the abdomen and pelvis with air-fluid level. Findings likely represent bowel ileus. The possibility of distal large bowel obstruction is less likely.
[2017-06-25] MEDS: cefTRIAXone IV 1 gm in Dextros 50 ML IVPB SCH (17:15)
[2017-06-25] MEDS ORDERED: Lactated Ringer's 1,000 ML IV SCH (19:15)
[2017-06-25] MEDS: Lactated Ringer's 1,000 ML IV SCH (19:19)
[2017-06-26] MEDS: metroNIDAZOLE IV 500 mg/100 ml 500 MG/100 ML BAG IVPB SCH ×3 (05:26→21:38)
[2017-06-26 07:19] LABS: BASO % 0.2 % (0.0-2.0); EOS % 0.3 % (0.0-4.0); LYMPH # 0.9 K/uL (1.0-4.3); LYMPH % 25.9 % (20.0-40.0); MEAN CELL VOLUME 88.4 fL (80.0-94.0); MEAN CORPUSCULAR HEMOGLOBIN 30.3 pg (27.0-31.0); MEAN CORPUSCULAR HGB CONC 34.2 g/dL (33.0-37.0); MEAN PLATELET VOLUME 10.1 fL (7.2-11.7); MONO # 0.7 K/uL (0.0-0.8); MONO % 18.9 % (0.0-10.0); NRBC % 0.2 % (0.0-2.0); RED CELL DISTRIBUTION WIDTH 13.4 % (11.5-14.5); WHITE BLOOD COUNT 3.5 K/uL (4.8-10.8)
[2017-06-26 07:55] LABS: ALKALINE PHOSPHATASE 62 U/L (38-126); ALT/SGPT 32 U/L (21-72); AST/SGOT 20 U/L (17-59); BILIRUBIN,TOTAL 0.8 mg/dL (0.2-1.3); BLOOD UREA NITROGEN 19 mg/dL (9-20); CALCIUM 8.2 mg/dl (8.6-10.4); CARBON DIOXIDE 25 mmol/L (22-30); CHLORIDE 99 mmol/L (98-107); GFR AFRICAN-AMERICAN > 60; GLUCOSE,RANDOM 82 mg/dL (75-110); PHOSPHOROUS 3.6 mg/dL (2.5-4.5); POTASSIUM 3.4 mmol/L (3.6-5.2); SODIUM 134 mmol/L (132-148); TOTAL PROTEIN 5.9 g/dL (6.3-8.3)
[2017-06-26 07:58] LABS: ALB/GLOB RATIO 1.1 (1.0-2.1)
[2017-06-26] MEDS: Morphine 15 mg SR Tab PO SCH ×3 (10:15→21:38)
[2017-06-26] MEDS: Lactated Ringer's 1,000 ML IV SCH ×3 (10:16→22:24)
--- NOTE | 2017-06-26 10:44 | CP.PCM.PN ---
Subjective - Date & Time of Evaluation Date of Evaluation: 06/26/17 Time of Evaluation: 06:45 - Subjective Subjective: General Surgery Note for Dr. Hill Patient seen and examined at bedside. No acute event overnight. Patient made NPO due to ABXR showing ileus. Denies pain, n/v/d. Patient has no complaints. He is hypokalemic. Objective - Vital Signs/Intake and Output Vital Signs (last 24 hours): Temp Pulse Resp BP Pulse Ox 98.4 F 80 20 108/71 95 06/25/17 15:00 06/25/17 15:00 06/25/17 15:00 06/25/17 15:00 06/25/17 15:00 Intake and Output: 06/26/17 06/26/17 06:59 18:59 Intake Total 450 Balance 450 - Medications Medications: Current Medications Famotidine (Pepcid) 20 mg PO DAILY [facility] Last Admin: 06/26/17 10:14 Dose: 20 mg Heparin Sodium (Porcine) (Heparin) 5,000 units SC Q8 [facility] Last Admin: 06/26/17 05:25 Dose: 5,000 units Ceftriaxone Sodium (Rocephin Iv 1 Gm Duplex) 50 mls @ 100 mls/hr IVPB Q24H [facility] Last Admin: 06/25/17 17:15 Dose: 100 mls/hr Metronidazole (Flagyl) 500 mg in 100 mls @ 100 mls/hr IVPB Q8 [facility] Last Admin: 06/26/17 05:26 Dose: 100 mls/hr Lactated Ringer's (Lactated Ringer's) 1,000 mls @ 75 mls/hr IV .[id number] [facility] Last Admin: 06/26/17 10:17 Dose: 75 mls/hr Potassium Chloride (Potassium Chloride 10 Meq/100 Ml) 10 meq in 100 mls @ 100 mls/hr IVPB Q1H [facility] Stop: 06/26/17 15:44 Morphine Sulfate (Morphine Extended Release Tab) 15 mg PO Q12 [facility] Last Admin: 06/26/17 10:40 Dose: Not Given Morphine Sulfate (Morphine) 1 mg IV Q4 PRN PRN Reason: Pain, moderate (4-7) Last Admin: 06/24/17 15:21 Dose: 1 mg Ondansetron HCl (Zofran Inj) 4 mg IVP Q6H PRN PRN Reason: Nausea/Vomiting Oxycodone HCl (Oxycodone Immediate Release Tab) 5 mg PO Q6 PRN PRN Reason: Pain, Mild (1-3) - Labs Labs: 06/26/17 06:59 06/26/17 06:59 PT 17.2 SECONDS (9.7-12.2) H 06/23/17 13:46 INR 1.5 06/23/17 13:46 APTT 28 SECONDS (21-34) 06/23/17 13:46 - Constitutional Appears: No Acute Distress, Cachectic, Chronically Ill - Head Exam Head Exam: ATRAUMATIC, NORMOCEPHALIC - Eye Exam Eye Exam: EOMI, Normal appearance - Respiratory Exam Respiratory Exam: NORMAL BREATHING PATTERN - Cardiovascular Exam Cardiovascular Exam: REGULAR RHYTHM - GI/Abdominal Exam GI & Abdominal Exam: Distended (mild), Soft. absent: Firm, Guarding, Rigid, Tenderness, Rebound - Neurological Exam Neurological Exam: Alert, Awake - Psychiatric Exam Psychiatric exam: Normal Affect, Normal Mood - Skin Skin Exam: Dry, Normal Color, Warm Assessment and Plan - Assessment and Plan (Free Text) Plan: 76 M with ileus, hypokalemia -KCL IVPB -Continue LR -Suppository today -Serial abdominal exams -Discussed with Dr. Liz Purvis PGY1
--- NOTE | 2017-06-26 11:27 | CP.PCM.PN ---
Subjective - Date & Time of Evaluation Date of Evaluation: 06/26/17 Time of Evaluation: :22 - Subjective Subjective: Patient seen and examined, family members at bedside. No acute events overnight , his abdominal pain has improved. He is passing gas, though has not had any bowel movements overnight or today thus far. He denies nausea, vomiting, fever/ chills. 12 point review of systems performed, negative aside from mentioned above. Objective - Vital Signs/Intake and Output Vital Signs (last 24 hours): Temp Pulse Resp BP Pulse Ox 98.4 F 80 20 108/71 95 06/25/17 15:00 06/25/17 15:00 06/25/17 15:00 06/25/17 15:00 06/25/17 15:00 Intake and Output: 06/26/17 06/26/17 06:59 18:59 Intake Total 450 Balance 450 - Medications Medications: Current Medications Famotidine (Pepcid) 20 mg PO DAILY [facility] Last Admin: 06/26/17 10:14 Dose: 20 mg Heparin Sodium (Porcine) (Heparin) 5,000 units SC Q8 [facility] Last Admin: 06/26/17 05:25 Dose: 5,000 units Ceftriaxone Sodium (Rocephin Iv 1 Gm Duplex) 50 mls @ 100 mls/hr IVPB Q24H [facility] Last Admin: 06/25/17 17:15 Dose: 100 mls/hr Metronidazole (Flagyl) 500 mg in 100 mls @ 100 mls/hr IVPB Q8 [facility] Last Admin: 06/26/17 05:26 Dose: 100 mls/hr Lactated Ringer's (Lactated Ringer's) 1,000 mls @ 75 mls/hr IV .[id number] [facility] Last Admin: 06/26/17 10:17 Dose: 75 mls/hr Potassium Chloride (Potassium Chloride 20 Meq/100 Ml) 20 meq in 100 mls @ 100 mls/hr IVPB Q2H [facility] Stop: 06/26/17 14:14 Morphine Sulfate (Morphine Extended Release Tab) 15 mg PO Q12 [facility] Last Admin: 06/26/17 10:40 Dose: Not Given Morphine Sulfate (Morphine) 1 mg IV Q4 PRN PRN Reason: Pain, moderate (4-7) Last Admin: 06/24/17 15:21 Dose: 1 mg Ondansetron HCl (Zofran Inj) 4 mg IVP Q6H PRN PRN Reason: Nausea/Vomiting Oxycodone HCl (Oxycodone Immediate Release Tab) 5 mg PO Q6 PRN PRN Reason: Pain, Mild (1-3) - Labs Labs: 06/26/17 06:59 06/26/17 06:59 PT 17.2 SECONDS (9.7-12.2) H 06/23/17 13:46 INR 1.5 06/23/17 13:46 APTT 28 SECONDS (21-34) 06/23/17 13:46 - Constitutional Appears: Non-toxic, No Acute Distress - Head Exam Head Exam: NORMAL INSPECTION - Eye Exam Eye Exam: EOMI, Normal appearance - ENT Exam ENT Exam: Mucous Membranes Moist - Respiratory Exam Respiratory Exam: Clear to Ausculation Bilateral - Cardiovascular Exam Cardiovascular Exam: +S1, +S2 - GI/Abdominal Exam GI & Abdominal Exam: Soft, Normal Bowel Sounds Additional comments: non tender to palpation in four quadrants - Extremities Exam Extremities Exam: Normal Inspection - Skin Skin Exam: Dry, Intact, Normal Color, Warm Assessment and Plan - Assessment and Plan (Free Text) Assessment: History of prostate cancer 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 Patient should have outpatient colonoscopy following resolution of acute medical condition, office contact information provided to patient. Please reconsult as necessary, thank you.
[2017-06-26] MEDS ORDERED: Potassium Chloride 20 mEq ER Tab PO SCH (13:15)
[2017-06-26] MEDS: cefTRIAXone IV 1 gm in Dextros 50 ML IVPB SCH (17:18)
--- NOTE | 2017-06-26 19:24 | CP.PCM.PN ---
<Jayla Rodriguez - Last Filed: 06/26/17 19:30> Subjective - Date & Time of Evaluation Date of Evaluation: 06/26/17 Time of Evaluation: 12:30 - Subjective Subjective: Progress note for Dr. Rodriguez, Patient seen and examined at bedside. No acute events overnight. Patient is tolerated liquid diet well. LR running at 75cc/hr at bedside. Patient states he' s passed gas. Patient denied BM, nausea and vomiting. Patient denied chest pain. Objective - Vital Signs/Intake and Output Vital Signs (last 24 hours): Temp Pulse Resp BP Pulse Ox 97.3 F L 81 20 101/68 95 06/26/17 15:00 06/26/17 15:00 06/26/17 15:00 06/26/17 15:00 06/26/17 15:00 Intake and Output: 06/26/17 06/27/17 18:59 06:59 Intake Total 1050 Balance 1050 - Medications Medications: Current Medications Famotidine (Pepcid) 20 mg PO DAILY [facility] Last Admin: 06/26/17 10:14 Dose: 20 mg Heparin Sodium (Porcine) (Heparin) 5,000 units SC Q8 [facility] Last Admin: 06/26/17 13:56 Dose: 5,000 units Ceftriaxone Sodium (Rocephin Iv 1 Gm Duplex) 50 mls @ 100 mls/hr IVPB Q24H [facility] Last Admin: 06/26/17 17:18 Dose: 100 mls/hr Metronidazole (Flagyl) 500 mg in 100 mls @ 100 mls/hr IVPB Q8 [facility] Last Admin: 06/26/17 13:55 Dose: 100 mls/hr Lactated Ringer's (Lactated Ringer's) 1,000 mls @ 75 mls/hr IV .[id number] [facility] Last Admin: 06/26/17 10:17 Dose: 75 mls/hr Morphine Sulfate (Morphine Extended Release Tab) 15 mg PO Q12 [facility] Last Admin: 06/26/17 10:40 Dose: Not Given Morphine Sulfate (Morphine) 1 mg IV Q4 PRN PRN Reason: Pain, moderate (4-7) Last Admin: 06/24/17 15:21 Dose: 1 mg Ondansetron HCl (Zofran Inj) 4 mg IVP Q6H PRN PRN Reason: Nausea/Vomiting Oxycodone HCl (Oxycodone Immediate Release Tab) 5 mg PO Q6 PRN PRN Reason: Pain, Mild (1-3) - Labs Labs: 06/26/17 06:59 06/26/17 06:59 PT 17.2 SECONDS (9.7-12.2) H 06/23/17 13:46 INR 1.5 06/23/17 13:46 APTT 28 SECONDS (21-34) 06/23/17 13:46 - Constitutional Appears: Non-toxic, No Acute Distress - Head Exam Head Exam: NORMAL INSPECTION - Eye Exam Eye Exam: EOMI, Normal appearance - Neck Exam Neck Exam: Full ROM - Respiratory Exam Respiratory Exam: NORMAL BREATHING PATTERN. absent: Accessory Muscle Use - Cardiovascular Exam Cardiovascular Exam: REGULAR RHYTHM, +S1, +S2 - GI/Abdominal Exam GI & Abdominal Exam: Soft. absent: Tenderness, Rebound Additional comments: bowel sounds auscultated in all four quadrants - Extremities Exam Extremities Exam: Full ROM. absent: Pedal Edema - Neurological Exam Neurological Exam: Alert, Awake - Psychiatric Exam Psychiatric exam: Normal Affect, Normal Mood - Skin Skin Exam: Dry, Warm Assessment and Plan - Assessment and Plan (Free Text) Assessment: (1) Small bowel obstruction Assessment & Plan: * Stable * General Surgery consulted, Dr. Hill-->help appreciated * GI consulted, Dr. Weiss-->help appreciated * Management as per recommendation * Imaging: Abdominal Obstructive series: Findings concerning for mechanical small-bowel obstruction. No free intraperitoneal air. Bilateral hilar lymphadenopathy. 10 mm left basilar pulmonary nodule. * Patient switched back to NPO. Patient had prior order when was in the ED for heart health. Was not advanced by medicine. Patient continues to complain about abdominal pain. 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 Hart --> help appreciated-->Chemotherapy on hold due to leukopenia * Palliative Consult: Ruth --> help appreciated * General Surgery, Dr. Hill---> Help appreciated * Imaging: Abdomen/Pelvis CT ( 06/13/17):Enlarged prostate gland with radiation seeds within and stable metastatic lymph nodes in the pelvis, the largest anterior to the left common iliac artery. Fatty liver and stable simple cyst in the right hepatic lobe. Few subcentimeter scattered lesions in the liver are too small to characterize by CT criteria. Pulmonary metastasis and bilateral hilar adenopathy, larger on the right. * Abdomen/Pelvis CT ( 04/17/17): Innumerable new pulmonary metastasis the preponderance of which are 1 cm or less. The largest nodules in the lower lobe are all less than 1.6 cm. Status: Acute (3) Abdominal pain Assessment & Plan: * Possibly secondary to small bowel adenocarcinoma vs. infection vs SBO * GI consult: Dr. Weiss --> help appreciated * General Surgery, Dr. Hill-->help appreciated * Obstructive Series (06/23/17): Findings concerning for mechanical small-bowel obstruction. No free intraperitonneal air. Bilateral hilar lymphadenopathy. 10mm left basilar pulmonary nodule. * patient is NPO (d/c heart health diet prior ED order) - Medications: * Morphine IV 1mg PRN Q4H * MS Contin 15mg PO Q12H * Lactated Ringers 130mg/kg/hr * Zofran 4mg IV q6h PRN for nausea Status: Acute (4) Diarrhea Assessment & Plan: * Gastrointestinal consulted, Dr. 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 * Improving * Heme onc is on board * Continue to monitor * Chemotherapy on hold due to neutropenia Status: Acute (6) Bandemia Assessment & Plan: * Afebrile, resolved * Blood cultures (06/23/17): no growth after 24hours X2 * Rocephin 1 gram IVQ24H (active since 06/24/17) * Flagyl 500mg IVQ8H (active since 06/24/17) * Continue to monitor * R/O infection with stool studies Status: Acute (7) Prophylactic measure Assessment & Plan: - SCDs - Heparin 5000 U SC Q8H - Pepcid 20mg PO daily - Florastor 250mg PO BID - Diet: Liquid Status: Acute Disposition: * 06/25 Patient's diet in error in regards to heart healthy (prior order from ED ). Patient switched back to NPO. Will defer to GI and General surgery to determine to advance diet. Nurse communication to indicate switch back to NPO. * Patient stool studies collected today * 06/26 Patient is on 3rd day of IV Abx * 06/26 Patient is passing gas, but no BM, continue to monitor BM <Constanza Rodriguez V - Last Filed: 06/27/17 10:36> Objective - Vital Signs/Intake and Output Vital Signs (last 24 hours): Temp Pulse Resp BP Pulse Ox 97.7 F 66 20 112/73 98 06/27/17 08:39 06/27/17 08:39 06/27/17 08:39 06/27/17 08:39 06/27/17 08:39 Intake and Output: 06/27/17 06/27/17 06:59 18:59 Intake Total 1400 Balance 1400 - Medications Medications: Current Medications Famotidine (Pepcid) 20 mg PO DAILY [facility] Last Admin: 06/27/17 09:21 Dose: 20 mg Heparin Sodium (Porcine) (Heparin) 5,000 units SC Q8 [facility] Last Admin: 06/27/17 05:38 Dose: 5,000 units Ceftriaxone Sodium (Rocephin Iv 1 Gm Duplex) 50 mls @ 100 mls/hr IVPB Q24H [facility] Last Admin: 06/26/17 17:18 Dose: 100 mls/hr Metronidazole (Flagyl) 500 mg in 100 mls @ 100 mls/hr IVPB Q8 [facility] Last Admin: 06/27/17 05:37 Dose: 100 mls/hr Morphine Sulfate (Morphine Extended Release Tab) 15 mg PO Q12 [facility] Last Admin: 06/27/17 10:21 Dose: Not Given Morphine Sulfate (Morphine) 1 mg IV Q4 PRN PRN Reason: Pain, moderate (4-7) Last Admin: 06/24/17 15:21 Dose: 1 mg Ondansetron HCl (Zofran Inj) 4 mg IVP Q6H PRN PRN Reason: Nausea/Vomiting Oxycodone HCl (Oxycodone Immediate Release Tab) 5 mg PO Q6 PRN PRN Reason: Pain, Mild (1-3) - Labs Labs: 06/27/17 07:06 06/27/17 07:06 PT 17.2 SECONDS (9.7-12.2) H 06/23/17 13:46 INR 1.5 06/23/17 13:46 APTT 28 SECONDS (21-34) 06/23/17 13:46 Assessment and Plan (1) Adenocarcinoma of small intestine, stage 4 Status: Acute (2) Bandemia Status: Acute (3) Small bowel carcinoma Status: Acute (4) Small bowel obstruction Status: Acute (5) Prophylactic measure Status: Acute Attending/Attestation - Attestation I have personally seen and examined this patient.: Yes I have fully participated in the care of the patient.: Yes I have reviewed all pertinent clinical information, including history, physical exam and plan: Yes Notes (Text): This is late computer entry for 06/26/17. Patient seen, examined and case discussed with day-time resident Patient seen this morning with son at bedside. Per son, patient appears "alot better". Patient reports stool is becoming more formed and less like diarrhea. Patient's diet advanced to liquid. Patient's pain is controlled with pain medication. Assessment/Plan (1) Small bowel obstruction Assessment & Plan: * Improving * General Surgery consulted, Dr. Hill-->help appreciated * GI consulted, Dr. Weiss-->help appreciated * Signed off 06/26/17 * Per GI,No planned GI intervention, will sign off case. Patient should have outpatient colonoscopy following resolution of acute medical condition, office contact information provided to patient. * Imaging: Abdominal Obstructive series: Findings concerning for mechanical small-bowel obstruction. No free intraperitoneal air. Bilateral hilar lymphadenopathy. 10 mm left basilar pulmonary nodule. * Patient switched back to NPO. Patient had prior order when was in the ED for heart health. Was not advanced by medicine. Patient continues to complain about abdominal pain. * Patient is on IV abx * Patient reports improving bowel movements * Patient has hx of adenocarcinoma of small intestine * Diet advanced to liquid by General surgery. 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 Hart --> help appreciated-->Chemotherapy on hold due to leukopenia * Palliative Consult: Ruth --> help appreciated * General Surgery, Dr. Hill---> Help appreciated * Imaging: Abdomen/Pelvis CT ( 06/13/17):Enlarged prostate gland with radiation seeds within and stable metastatic lymph nodes in the pelvis, the largest anterior to the left common iliac artery. Fatty liver and stable simple cyst in the right hepatic lobe. Few subcentimeter scattered lesions in the liver are too small to characterize by CT criteria. Pulmonary metastasis and bilateral hilar adenopathy, larger on the right. * Abdomen/Pelvis CT ( 04/17/17): Innumerable new pulmonary metastasis the preponderance of which are 1 cm or less. The largest nodules in the lower lobe are all less than 1.6 cm. Status: Acute (3) Abdominal pain Assessment & Plan: * Possibly secondary to small bowel adenocarcinoma vs. infection vs SBO * GI consult: Dr. Weiss --> help appreciated * General Surgery, Dr. Hill-->help appreciated * Obstructive Series (06/23/17): Findings concerning for mechanical small-bowel obstruction. No free intraperitonneal air. Bilateral hilar lymphadenopathy. 10mm left basilar pulmonary nodule. * Diet advanced to liquid * Pain improved with pain medication - Medications: * Morphine IV 1mg PRN Q4H * MS Contin 15mg PO Q12H * Lactated Ringers 130mg/kg/hr * Zofran 4mg IV q6h PRN for nausea Status: Acute (4) Diarrhea Assessment & Plan: * Gastrointestinal consulted, Dr. Weiss-->help appreciated * Improving * Labs: F/u stool culture, ova and parasite, Cryptosporidium, Giardia, fecal leukocytes Medicatons: * Rocephin 1 gram IVQ24H (active since 06/24/17) * Flagyl 500mg IVQ8H (active since 06/24/17) Status: Acute (5) Leukopenia Assessment & Plan: * Possibly secondary to chemotherapy for Stage IV small bowel adenocarcinoma with mets to the lungs * Improving * Heme onc is on board * Continue to monitor * Chemotherapy on hold due to neutropenia Status: Acute (6) Bandemia-->resolved Assessment & Plan: * Afebrile, resolved * Blood cultures (06/23/17): no growth * Rocephin 1 gram IVQ24H (active since 06/24/17) * Flagyl 500mg IVQ8H (active since 06/24/17) * Continue to monitor * R/O infection with stool studies and Status: Acute (7) Prophylactic measure Assessment & Plan: * SCDs * Heparin 5000 U SC Q8H * Pepcid 20mg PO daily * Florastor 250mg PO BID * Diet advanced to liquid Status: Acute Disposition: * Diet advanced to liquid. * Electrolytes repleted by surgery * Patient is on 3rd of IV Abx * GI seen and signed off 06/26/17. Per GI,No planned GI intervention, will sign off case. Patient should have outpatient colonoscopy following resolution of acute medical condition, office contact information provided to patient.
[2017-06-26 23:39] VITALS: TEMP 97.7
--- NOTE | 2017-06-27 04:23 | CP.PCM.PN ---
<Nidhi Leonard - Last Filed: 06/27/17 04:17> Subjective - Date & Time of Evaluation Date of Evaluation: 06/27/17 Time of Evaluation: 04:17 - Subjective Subjective: Patient was seen and examined. Patient states no complaints at this time. Patient denied BM, nausea and vomiting. Objective - Vital Signs/Intake and Output Vital Signs (last 24 hours): Temp Pulse Resp BP Pulse Ox 97.7 F 70 20 106/71 97 06/26/17 23:35 06/26/17 23:35 06/26/17 23:35 06/26/17 23:35 06/26/17 23:35 Intake and Output: 06/26/17 06/27/17 18:59 06:59 Intake Total 1050 800 Balance 1050 800 - Medications Medications: Current Medications Famotidine (Pepcid) 20 mg PO DAILY ON LICENSE OF [facility] Last Admin: 06/26/17 10:14 Dose: 20 mg Heparin Sodium (Porcine) (Heparin) 5,000 units SC Q8 ON LICENSE OF [facility] Last Admin: 06/26/17 21:38 Dose: 5,000 units Ceftriaxone Sodium (Rocephin Iv 1 Gm Duplex) 50 mls @ 100 mls/hr IVPB Q24H ON LICENSE OF [facility] Last Admin: 06/26/17 17:18 Dose: 100 mls/hr Metronidazole (Flagyl) 500 mg in 100 mls @ 100 mls/hr IVPB Q8 ON LICENSE OF [facility] Last Admin: 06/26/17 21:38 Dose: 100 mls/hr Lactated Ringer's (Lactated Ringer's) 1,000 mls @ 75 mls/hr IV .[id number] ON LICENSE OF [facility] Last Admin: 06/26/17 22:24 Dose: Not Given Morphine Sulfate (Morphine Extended Release Tab) 15 mg PO Q12 ON LICENSE OF [facility] Last Admin: 06/26/17 21:38 Dose: 15 mg Morphine Sulfate (Morphine) 1 mg IV Q4 PRN PRN Reason: Pain, moderate (4-7) Last Admin: 06/24/17 15:21 Dose: 1 mg Ondansetron HCl (Zofran Inj) 4 mg IVP Q6H PRN PRN Reason: Nausea/Vomiting Oxycodone HCl (Oxycodone Immediate Release Tab) 5 mg PO Q6 PRN PRN Reason: Pain, Mild (1-3) - Labs Labs: 06/26/17 06:59 06/26/17 06:59 PT 17.2 SECONDS (9.7-12.2) H 06/23/17 13:46 INR 1.5 06/23/17 13:46 APTT 28 SECONDS (21-34) 06/23/17 13:46 - Constitutional Appears: No Acute Distress - Head Exam Head Exam: ATRAUMATIC, NORMAL INSPECTION - Eye Exam Eye Exam: EOMI, Normal appearance - ENT Exam ENT Exam: Mucous Membranes Moist - Cardiovascular Exam Cardiovascular Exam: REGULAR RHYTHM, +S1, +S2 - GI/Abdominal Exam GI & Abdominal Exam: Soft, Normal Bowel Sounds. absent: Tenderness - Extremities Exam Extremities Exam: Normal Inspection - Neurological Exam Neurological Exam: Alert, Awake - Psychiatric Exam Psychiatric exam: Normal Affect, Normal Mood - Skin Skin Exam: Normal Color, Warm Assessment and Plan - Assessment and Plan (Free Text) Assessment: 1.) Abdominal Pain possibly secondary to small bowel adenocarcinoma vs. infection GI consult: Dr. Weiss --> help appreciated General Surgery consulted, Dr. Hill-->help appreciated - Obstructive Series (06/23/17): Findings concerning for mechanical small-bowel obstruction. No free intraperitonneal air. Bilateral hilar lymphadenopathy. 10mm left basilar pulmonary nodule. Patient switched back to NPO. Patient had prior order when was in the ED for heart health. Was not advanced by medicine. Patient continues to complain about abdominal pain. 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 Hart --> help appreciated Palliative Consult: Ruth --> help appreciated General Surgery, Dr. Hill---> Help appreciated 3.) History of Chronic Diarrhea - afebrile - f/u Stool parasites - f/u Stool WBC - f/u Stool C. 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 s/p chemotherapy one week ago - WBC on admission (06/23): 3.7 - Monitor 5.) Bandemia * Afebrile, resolved * Blood cultures (06/23/17): no growth after 24hours X2 * Rocephin 1 gram IVQ24H (active since 06/24/17) * Flagyl 500mg IVQ8H (active since 06/24/17) * Continue to monitor * R/O infection with stool studies 6.)Prophylaxis - SCDs - Heparin 5000 U SC Q8H - Pepcid 20mg PO daily <Constanza Rodriguez V - Last Filed: 06/27/17 10:43> Objective - Vital Signs/Intake and Output Vital Signs (last 24 hours): Temp Pulse Resp BP Pulse Ox 97.7 F 66 20 112/73 98 06/27/17 08:39 06/27/17 08:39 06/27/17 08:39 06/27/17 08:39 06/27/17 08:39 Intake and Output: 06/27/17 06/27/17 06:59 18:59 Intake Total 1400 Balance 1400 - Medications Medications: Current Medications Famotidine (Pepcid) 20 mg PO DAILY ON LICENSE OF [facility] Last Admin: 06/27/17 09:21 Dose: 20 mg Heparin Sodium (Porcine) (Heparin) 5,000 units SC Q8 ON LICENSE OF [facility] Last Admin: 06/27/17 05:38 Dose: 5,000 units Ceftriaxone Sodium (Rocephin Iv 1 Gm Duplex) 50 mls @ 100 mls/hr IVPB Q24H ON LICENSE OF [facility] Last Admin: 06/26/17 17:18 Dose: 100 mls/hr Metronidazole (Flagyl) 500 mg in 100 mls @ 100 mls/hr IVPB Q8 ON LICENSE OF [facility] Last Admin: 06/27/17 05:37 Dose: 100 mls/hr Morphine Sulfate (Morphine Extended Release Tab) 15 mg PO Q12 ON LICENSE OF [facility] Last Admin: 06/27/17 10:21 Dose: Not Given Morphine Sulfate (Morphine) 1 mg IV Q4 PRN PRN Reason: Pain, moderate (4-7) Last Admin: 06/24/17 15:21 Dose: 1 mg Ondansetron HCl (Zofran Inj) 4 mg IVP Q6H PRN PRN Reason: Nausea/Vomiting Oxycodone HCl (Oxycodone Immediate Release Tab) 5 mg PO Q6 PRN PRN Reason: Pain, Mild (1-3) - Labs Labs: 06/27/17 07:06 06/27/17 07:06 PT 17.2 SECONDS (9.7-12.2) H 06/23/17 13:46 INR 1.5 06/23/17 13:46 APTT 28 SECONDS (21-34) 06/23/17 13:46 Assessment and Plan (1) Adenocarcinoma of small intestine, stage 4 Status: Acute (2) Bandemia Status: Acute (3) Small bowel carcinoma Status: Acute (4) Small bowel obstruction Status: Acute (5) Prophylactic measure Status: Acute Attending/Attestation - Attestation I have personally seen and examined this patient.: Yes I have fully participated in the care of the patient.: Yes I have reviewed all pertinent clinical information, including history, physical exam and plan: Yes Notes (Text): Patient seen, examined and case discussed with day-time resident Patient seen this morning with nephew, son, and grandson at bedside. per patient , patient is tolerating liquid diet. Patient requesting soft diet. Patient reports he did not have a bowel movement this morning. Reports had bowel movement yesterday and appears improved. Electrolytes repleted this morning. Patient denies abdominal pain. Will monitor patient today, if patient tolerates regular diet, will possible discharge later today. Discontinue IV fluids. Discussed with patient's nurse, Nader as well this morning. Assessment/Plan (1) Small bowel obstruction Assessment & Plan: * Improving * General Surgery consulted, Dr. Hill-->help appreciated * No surgical intervention at this time. * GI consulted, Dr. Weiss-->help appreciated * Signed off 06/26/17 * Per GI,No planned GI intervention, will sign off case. Patient should have outpatient colonoscopy following resolution of acute medical condition, office contact information provided to patient. * Imaging: Abdominal Obstructive series: Findings concerning for mechanical small-bowel obstruction. No free intraperitoneal air. Bilateral hilar lymphadenopathy. 10 mm left basilar pulmonary nodule. * Patient switched back to NPO. Patient had prior order when was in the ED for heart health. Was not advanced by medicine. Patient continues to complain about abdominal pain. * Patient is on IV abx * Patient reports improving bowel movements * Patient has hx of adenocarcinoma of small intestine * Diet advanced to regular diet Status: Acute (2) Adenocarcinoma of small intestine, stage 4 Assessment & Plan: * With lung metastases * Heme/Onc Consult: Dr. Hart --> help appreciated-->Chemotherapy on hold due to leukopenia * Palliative Consult: Ruth --> help appreciated * General Surgery, Dr. Hill---> Help appreciated * Imaging: Abdomen/Pelvis CT ( 06/13/17):Enlarged prostate gland with radiation seeds within and stable metastatic lymph nodes in the pelvis, the largest anterior to the left common iliac artery. Fatty liver and stable simple cyst in the right hepatic lobe. Few subcentimeter scattered lesions in the liver are too small to characterize by CT criteria. Pulmonary metastasis and bilateral hilar adenopathy, larger on the right. * Abdomen/Pelvis CT ( 04/17/17): Innumerable new pulmonary metastasis the preponderance of which are 1 cm or less. The largest nodules in the lower lobe are all less than 1.6 cm. Status: Acute (3) Abdominal pain-->Resolved Assessment & Plan: * Possibly secondary to small bowel adenocarcinoma vs. infection vs SBO * GI consult: Dr. Weiss --> help appreciated-->signed off 06/26 * General Surgery, Dr. Hill-->help appreciated * Obstructive Series (06/23/17): Findings concerning for mechanical small-bowel obstruction. No free intraperitonneal air. Bilateral hilar lymphadenopathy. 10mm left basilar pulmonary nodule. * Diet advanced to soft diet today * Pain improved with pain medication - Medications: * Morphine IV 1mg PRN Q4H * MS Contin 15mg PO Q12H * Lactated Ringers 130mg/kg/hr * Zofran 4mg IV q6h PRN for nausea Status: Acute (4) Diarrhea--Improved Assessment & Plan: * Gastrointestinal consulted, Dr. Weiss-->help appreciated * Improving * C. dif negative, Stool ova and parasite negative, stool leukocytes negative Medicatons: * Rocephin 1 gram IVQ24H (active since 06/24/17) * Flagyl 500mg IVQ8H (active since 06/24/17) Status: Acute (5) Leukopenia Assessment & Plan: * Possibly secondary to chemotherapy for Stage IV small bowel adenocarcinoma with mets to the lungs * Improving * Heme onc is on board * Continue to monitor * Chemotherapy on hold due to neutropenia Status: Acute (6) Bandemia-->resolved Assessment & Plan: * Afebrile, resolved * Blood cultures (06/23/17): no growth X3 days * Rocephin 1 gram IVQ24H (active since 06/24/17) * Flagyl 500mg IVQ8H (active since 06/24/17) * Continue to monitor * C. dif negative, Stool ova and parasite negative, stool leukocytes negative (7) Prophylactic measure Assessment & Plan: * SCDs * Heparin 5000 U SC Q8H * Pepcid 20mg PO daily * Florastor 250mg PO BID * Diet advanced to liquid * D/C IV fluids Status: Acute Disposition: * Diet advanced to soft diet for lunch today * Patient is on 4th day of IV Abx * GI seen and signed off 06/26/17. Per GI,No planned GI intervention, will sign off case. Patient should have outpatient colonoscopy following resolution of acute medical condition, office contact information provided to patient.
[2017-06-27] MEDS: Lactated Ringer's 1,000 ML IV SCH (05:37)
[2017-06-27] MEDS: metroNIDAZOLE IV 500 mg/100 ml 500 MG/100 ML BAG IVPB SCH ×2 (05:37→13:30)
[2017-06-27 07:29] LABS: BASO % 0.2 % (0.0-2.0); EOS % 0.8 % (0.0-4.0); HEMATOCRIT 37.2 % (35.0-51.0); LYMPH # 0.8 K/uL (1.0-4.3); LYMPH % 23.4 % (20.0-40.0); MEAN CELL VOLUME 88.3 fL (80.0-94.0); MEAN PLATELET VOLUME 10.4 fL (7.2-11.7); MONO # 0.6 K/uL (0.0-0.8); MONO % 17.3 % (0.0-10.0); RED CELL DISTRIBUTION WIDTH 13.5 % (11.5-14.5); WHITE BLOOD COUNT 3.6 K/uL (4.8-10.8)
[2017-06-27 08:20] LABS: ALB/GLOB RATIO 1.1 (1.0-2.1); ALKALINE PHOSPHATASE 59 U/L (38-126); ALT/SGPT 35 U/L (21-72); AST/SGOT 27 U/L (17-59); BILIRUBIN,TOTAL 0.6 mg/dL (0.2-1.3); BLOOD UREA NITROGEN 15 mg/dL (9-20); CALCIUM 7.9 mg/dl (8.6-10.4); CARBON DIOXIDE 25 mmol/L (22-30); CHLORIDE 101 mmol/L (98-107); GFR AFRICAN-AMERICAN > 60; GLUCOSE,RANDOM 87 mg/dL (75-110); MAGNESIUM 1.8 mg/dL (1.6-2.3); PHOSPHOROUS 3.2 mg/dL (2.5-4.5); POTASSIUM 3.2 mmol/L (3.6-5.2); SODIUM 134 mmol/L (132-148); TOTAL PROTEIN 5.5 g/dL (6.3-8.3)
[2017-06-27 08:40] VITALS: BP 112/73; PULSE 66; O2SAT 98
--- NOTE | 2017-06-27 09:35 | CP.PCM.PN ---
Subjective - Date & Time of Evaluation Date of Evaluation: 06/27/17 Time of Evaluation: 07:00 - Subjective Subjective: Surgery- Dr. Hill Patient seen and examined at bedside this AM. no acute events overnight. abdominal pain has resolved. + Flatus, + BM. tolerating current diet. Denies, fevers, chills, chest pain, shortness of breath. Objective - Vital Signs/Intake and Output Vital Signs (last 24 hours): Temp Pulse Resp BP Pulse Ox 97.7 F 66 20 112/73 98 06/27/17 08:39 06/27/17 08:39 06/27/17 08:39 06/27/17 08:39 06/27/17 08:39 Intake and Output: 06/27/17 06/27/17 06:59 18:59 Intake Total 1400 Balance 1400 - Medications Medications: Current Medications Famotidine (Pepcid) 20 mg PO DAILY [facility] Last Admin: 06/27/17 09:21 Dose: 20 mg Heparin Sodium (Porcine) (Heparin) 5,000 units SC Q8 [facility] Last Admin: 06/27/17 05:38 Dose: 5,000 units Ceftriaxone Sodium (Rocephin Iv 1 Gm Duplex) 50 mls @ 100 mls/hr IVPB Q24H [facility] Last Admin: 06/26/17 17:18 Dose: 100 mls/hr Metronidazole (Flagyl) 500 mg in 100 mls @ 100 mls/hr IVPB Q8 [facility] Last Admin: 06/27/17 05:37 Dose: 100 mls/hr Lactated Ringer's (Lactated Ringer's) 1,000 mls @ 75 mls/hr IV .[id number] [facility] Last Admin: 06/27/17 05:37 Dose: 75 mls/hr Morphine Sulfate (Morphine Extended Release Tab) 15 mg PO Q12 [facility] Last Admin: 06/26/17 21:38 Dose: 15 mg Morphine Sulfate (Morphine) 1 mg IV Q4 PRN PRN Reason: Pain, moderate (4-7) Last Admin: 06/24/17 15:21 Dose: 1 mg Ondansetron HCl (Zofran Inj) 4 mg IVP Q6H PRN PRN Reason: Nausea/Vomiting Oxycodone HCl (Oxycodone Immediate Release Tab) 5 mg PO Q6 PRN PRN Reason: Pain, Mild (1-3) - Labs Labs: 06/27/17 07:06 06/27/17 07:06 PT 17.2 SECONDS (9.7-12.2) H 06/23/17 13:46 INR 1.5 06/23/17 13:46 APTT 28 SECONDS (21-34) 06/23/17 13:46 - Constitutional Appears: Non-toxic, No Acute Distress - Head Exam Head Exam: ATRAUMATIC - Eye Exam Eye Exam: EOMI. absent: Scleral icterus - ENT Exam ENT Exam: Mucous Membranes Moist - Respiratory Exam Respiratory Exam: NORMAL BREATHING PATTERN. absent: Accessory Muscle Use, Chest Wall Tenderness, Respiratory Distress - Cardiovascular Exam Cardiovascular Exam: +S1, +S2. absent: Bradycardia, Tachycardia - GI/Abdominal Exam GI & Abdominal Exam: Soft. absent: Distended, Firm, Guarding, Rigid, Tenderness , Rebound - Extremities Exam Extremities Exam: Normal Inspection. absent: Calf Tenderness - Neurological Exam Neurological Exam: Alert, Awake, Oriented x3 - Skin Skin Exam: Intact, Normal Color, Warm Assessment and Plan - Assessment and Plan (Free Text) Assessment: 76 M with ileus, hypokalemia, chemo-induced gastritis - replete lytes PRN - IVF- LR - suppository if needed - advance diet as tolerated - no surgical intervention at this time - Discussed with Dr. Liz James PGY1
[2017-06-27] MEDS: Morphine 15 mg SR Tab PO SCH (10:21)
[2017-06-27] MEDS ORDERED: Potassium Chloride 20 mEq ER Tab PO STA (10:26)
--- NOTE | 2017-06-27 15:14 | CP.PCM.DIS ---
Addendum entered and electronically signed by Antony Pruett DO 06/27/17 15:30: The patient has received a long acting morphine prescription from Dr. Rodriguez; this is for the patients advanced cancer diagnosis and such a medication is indicated with this type of illness. If the patient needs more pain medication, he needs to establish pain management as an outpatient. Original Note: <Antony Pruett - Last Filed: 06/27/17 15:14> Provider - Provider Date of Admission: 06/24/17 10:10 Attending physician: Luzmaria Lopez MD Consults: [facility] onc: [facility] GI: Abhishek Surgery: [facility] Time Spent in preparation of Discharge (in minutes): 60 Hospital Course - Lab Results Lab Results: Micro Results 06/25/17 12:00 Stool Stool Culture - Final NO SALMONELLA, SHIGELLA OR CAMPYLOBACTER ISOLATED. 06/23/17 13:30 Blood Blood Culture - Preliminary NO GROWTH AFTER 3 DAYS 06/23/17 13:45 Blood Blood Culture - Preliminary NO GROWTH AFTER 3 DAYS 06/25/17 12:00 Stool Ova and Parasite Concentrate Exam - Final Most Recent Lab Values WBC 3.6 K/uL (4.8-10.8) L 06/27/17 07:06 RBC 4.22 Mil/uL (4.40-5.90) L 06/27/17 07:06 Hgb 12.6 g/dL (12.0-18.0) 06/27/17 07:06 Hct 37.2 % (35.0-51.0) 06/27/17 07:06 MCV 88.3 fL (80.0-94.0) 06/27/17 07:06 MCH 30.0 pg (27.0-31.0) 06/27/17 07:06 MCHC 34.0 g/dL (33.0-37.0) 06/27/17 07:06 RDW 13.5 % (11.5-14.5) 06/27/17 07:06 Plt Count 214 K/uL (130-400) 06/27/17 07:06 MPV 10.4 fL (7.2-11.7) 06/27/17 07:06 Neut % (Auto) 58.3 % (50.0-75.0) 06/27/17 07:06 Lymph % (Auto) 23.4 % (20.0-40.0) 06/27/17 07:06 [place] % (Auto) 17.3 % (0.0-10.0) H 06/27/17 07:06 Eos % (Auto) 0.8 % (0.0-4.0) 06/27/17 07:06 Baso % (Auto) 0.2 % (0.0-2.0) 06/27/17 07:06 Neut # 2.1 K/uL (1.8-7.0) 06/27/17 07:06 Lymph # 0.8 K/uL (1.0-4.3) L 06/27/17 07:06 [place] # 0.6 K/uL (0.0-0.8) 06/27/17 07:06 Eos # 0.0 K/uL (0.0-0.7) 06/27/17 07:06 Baso # 0.0 K/uL (0.0-0.2) 06/27/17 07:06 Neutrophils % (Manual) 20 % (50-75) L 06/24/17 07:22 Band Neutrophils % 26 % (0-2) H* 06/24/17 07:22 Lymphocytes % (Manual) 23 % (20-40) 06/24/17 07:22 Monocytes % (Manual) 29 % (0-10) H 06/24/17 07:22 Eosinophils % (Manual) 2 % (0-4) 06/24/17 07:22 Nucleated RBC % 1 % (0-0) H 06/24/17 07:22 Platelet Estimate Normal (NORMAL) 06/24/17 07:22 Large Platelets Present 06/23/17 13:46 RBC Morphology Normal 06/24/17 07:22 PT 17.2 SECONDS (9.7-12.2) H 06/23/17 13:46 INR 1.5 06/23/17 13:46 APTT 28 SECONDS (21-34) 06/23/17 13:46 Sodium 134 mmol/L (132-148) 06/27/17 07:06 Potassium 3.2 mmol/L (3.6-5.2) L 06/27/17 07:06 Chloride 101 mmol/L (98-107) 06/27/17 07:06 Carbon Dioxide 25 mmol/L (22-30) 06/27/17 07:06 Anion Gap 12 (10-20) 06/27/17 07:06 BUN 15 mg/dL (9-20) 06/27/17 07:06 Creatinine 0.8 mg/dL (0.8-1.5) 06/27/17 07:06 Est GFR ( Amer) > 60 06/27/17 07:06 Est GFR (Non-Af Amer) > 60 06/27/17 07:06 Random Glucose 87 mg/dL (75-110) 06/27/17 07:06 Calcium 7.9 mg/dl (8.6-10.4) L 06/27/17 07:06 Phosphorus 3.2 mg/dL (2.5-4.5) 06/27/17 07:06 Magnesium 1.8 mg/dL (1.6-2.3) 06/27/17 07:06 Total Bilirubin 0.6 mg/dL (0.2-1.3) 06/27/17 07:06 Direct Bilirubin 0.7 mg/dL (0.0-0.4) H 06/24/17 07:22 AST 27 U/L (17-59) 06/27/17 07:06 ALT 35 U/L (21-72) 06/27/17 07:06 Alkaline Phosphatase 59 U/L (38-126) 06/27/17 07:06 Ammonia 9 umol/L (9-33) 06/23/17 13:46 Total Protein 5.5 g/dL (6.3-8.3) L 06/27/17 07:06 Albumin 2.9 g/dL (3.5-5.0) L 06/27/17 07:06 Globulin 2.6 gm/dL (2.2-3.9) 06/27/17 07:06 Albumin/Globulin Ratio 1.1 (1.0-2.1) 06/27/17 07:06 Lipase 11 U/L (23-300) L 06/23/17 13:46 Carcinoembryonic Ag 4.0 ng/mL (0-3.0) H 06/24/17 07:22 Urine Color Yellow (YELLOW) 06/23/17 23:16 Urine Clarity Clear (Clear) 06/23/17 23:16 Urine pH 5.0 (5.0-8.0) 06/23/17 23:16 Ur Specific [place] 1.023 (1.003-1.030) 06/23/17 23:16 Urine Protein Negative mg/dL (NEGATIVE) 06/23/17 23:16 Urine Glucose (UA) Normal mg/dL (Normal) 06/23/17 23:16 Urine Ketones Trace mg/dL (NEGATIVE) 06/23/17 23:16 Urine Blood Negative (NEGATIVE) 06/23/17 23:16 Urine Nitrate Negative (NEGATIVE) 06/23/17 23:16 Urine Bilirubin Negative (NEGATIVE) 06/23/17 23:16 Urine Urobilinogen Normal mg/dL (0.2-1.0) 06/23/17 23:16 Ur Leukocyte Esterase Neg Wilfred/uL (Negative) 06/23/17 23:16 Urine WBC (Auto) 1 /hpf (0-5) 06/23/17 23:16 Urine RBC (Auto) 2 /hpf (0-3) 06/23/17 23:16 Urine Bacteria Rare (<OCC) 06/23/17 23:16 Stool Leukocytes, Qual Negative (NEGATIVE) 06/25/17 10:40 Stl Cryptosporidium Ag Not detected (Not detected) 06/24/17 07:00 C. difficile Ag & Toxin Negative (NEGATIVE) 06/23/17 12:00 Cryptosp/Giardia Source Stool 06/24/17 07:00 Giardia Antigen Not detected (Not Detected) 06/24/17 07:00 - Hospital Course Hospital Course: Small bowel obstruction; resolved * Improving * General Surgery consulted, Dr. Hill-->help appreciated * No surgical intervention at this time. * GI consulted, Dr. Weiss-->help appreciated * Signed off 06/26/17 * Per GI,No planned GI intervention, will sign off case. Patient should have outpatient colonoscopy following resolution of acute medical condition, office contact information provided to patient. * Imaging: Abdominal Obstructive series: Findings concerning for mechanical small-bowel obstruction. No free intraperitoneal air. Bilateral hilar lymphadenopathy. 10 mm left basilar pulmonary nodule. * Patient switched back to NPO. Patient had prior order when was in the ED for heart health. Was not advanced by medicine. Patient continues to complain about abdominal pain. * Patient is on IV abx * Patient reports improving bowel movements * Patient has hx of adenocarcinoma of small intestine * Diet advanced to regular diet which the patient tolerated Adenocarcinoma of small intestine, stage 4 * With lung metastases * Heme/Onc Consult: Dr. Hart --> help appreciated-->Chemotherapy on hold due to leukopenia * Palliative Consult: Ruth --> help appreciated * General Surgery, Dr. Hill---> Help appreciated * Imaging: Abdomen/Pelvis CT ( 06/13/17):Enlarged prostate gland with radiation seeds within and stable metastatic lymph nodes in the pelvis, the largest anterior to the left common iliac artery. Fatty liver and stable simple cyst in the right hepatic lobe. Few subcentimeter scattered lesions in the liver are too small to characterize by CT criteria. Pulmonary metastasis and bilateral hilar adenopathy, larger on the right. * Abdomen/Pelvis CT ( 04/17/17): Innumerable new pulmonary metastasis the preponderance of which are 1 cm or less. The largest nodules in the lower lobe are all less than 1.6 cm. The patient is to follow up with heme onc on discharge; he also needs to establish primary care in order to receive more referrals for future visits. Abdominal pain-->Resolved * Possibly secondary to small bowel adenocarcinoma vs. infection vs SBO * GI consult: Dr. Weiss --> help appreciated-->signed off 06/26 * General Surgery, Dr. Hill-->help appreciated * Obstructive Series (06/23/17): Findings concerning for mechanical small-bowel obstruction. No free intraperitonneal air. Bilateral hilar lymphadenopathy. 10mm left basilar pulmonary nodule. * Diet advanced to soft diet today * Pain improved with pain medication - Medications: * Morphine IV 1mg PRN Q4H * MS Contin 15mg PO Q12H * Lactated Ringers 130mg/kg/hr * Zofran 4mg IV q6h PRN for nausea Diarrhea--Improved * Gastrointestinal consulted, Dr. Weiss-->help appreciated * Improving * C. 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 dif negative, Stool ova and parasite negative, stool leukocytes negative Prophylactic measure while in hospital : * SCDs * Heparin 5000 U SC Q8H * Pepcid 20mg PO daily * Florastor 250mg PO BID * Diet advanced to liquid * D/C IV fluids * Disposition: * GI seen and signed off 06/26/17. Per GI,No planned GI intervention, will sign off case. Patient should have outpatient colonoscopy following resolution of acute medical condition, office contact information provided to patient * patient to f/u with clinic here at [facility], [place] for further PMD/pain management referral * patient to f/u with Dr. tanner franz for stage 4 adenocarcinoma the patient is stable for d/c as per dr rodriguez Discharge Exam - Head Exam Head Exam: ATRAUMATIC Additional comments: - Constitutional Appears: No Acute Distress - Head Exam Head Exam: ATRAUMATIC, NORMAL INSPECTION - Eye Exam Eye Exam: EOMI, Normal appearance - ENT Exam ENT Exam: Mucous Membranes Moist - Cardiovascular Exam Cardiovascular Exam: REGULAR RHYTHM, +S1, +S2 - GI/Abdominal Exam GI & Abdominal Exam: Soft, Normal Bowel Sounds. absent: Tenderness - Extremities Exam Extremities Exam: Normal Inspection - Neurological Exam Neurological Exam: Alert, Awake - Psychiatric Exam Psychiatric exam: Normal Affect, Normal Mood - Skin Skin Exam: Normal Color, Warm Discharge Plan - Discharge Medications Prescriptions: Ciprofloxacin [Cipro] 500 mg PO BID #14 tab Metronidazole 500 mg PO TID #21 tablet Morphine [Morphine Extended Release Tab] 15 mg PO Q12 #10 tabsr oxyCODONE [oxyCODONE Immediate Release Tab] 5 mg PO Q6 PRN #10 tab PRN Reason: Pain, Mild (1-3) - Follow Up Plan Condition: STABLE Disposition: HOME/ ROUTINE Patient education suggested?: Yes Instructions: Rotavirus Infection (DC), Rotavirus Infection (GEN), Acute Abdominal Pain (DC), Acute Abdominal Pain (GEN), Abdominal Pain (ED), Bowel Obstruction (DC), Nutrition Tips for Relief of Diarrhea (DC), Nutrition Tips for Relief of Diarrhea (GEN) Referrals: Tremaine Weiss MD [Staff Provider] - Gary Hill MD [Staff Provider] - Gabe Hart MD [Staff Provider] - <Constanza Rodriguez V - Last Filed: 06/27/17 23:21> Provider - Provider Date of Admission: 06/24/17 10:10 Attending physician: Luzmaria Lopez MD Diagnosis - Discharge Diagnosis (1) Adenocarcinoma of small intestine, stage 4 Status: Acute (2) Bandemia Status: Acute (3) Small bowel carcinoma Status: Acute (4) Small bowel obstruction Status: Acute (5) Prophylactic measure Status: Acute Hospital Course - Lab Results Lab Results: Micro Results 06/23/17 13:30 Blood Blood Culture - Preliminary NO GROWTH AFTER 4 DAYS 06/23/17 13:45 Blood Blood Culture - Preliminary NO GROWTH AFTER 4 DAYS 06/25/17 12:00 Stool Stool Culture - Final NO SALMONELLA, SHIGELLA OR CAMPYLOBACTER ISOLATED. 06/25/17 12:00 Stool Ova and Parasite Concentrate Exam - Final Most Recent Lab Values WBC 3.6 K/uL (4.8-10.8) L 06/27/17 07:06 RBC 4.22 Mil/uL (4.40-5.90) L 06/27/17 07:06 Hgb 12.6 g/dL (12.0-18.0) 06/27/17 07:06 Hct 37.2 % (35.0-51.0) 06/27/17 07:06 MCV 88.3 fL (80.0-94.0) 06/27/17 07:06 MCH 30.0 pg (27.0-31.0) 06/27/17 07:06 MCHC 34.0 g/dL (33.0-37.0) 06/27/17 07:06 RDW 13.5 % (11.5-14.5) 06/27/17 07:06 Plt Count 214 K/uL (130-400) 06/27/17 07:06 MPV 10.4 fL (7.2-11.7) 06/27/17 07:06 Neut % (Auto) 58.3 % (50.0-75.0) 06/27/17 07:06 Lymph % (Auto) 23.4 % (20.0-40.0) 06/27/17 07:06 [place] % (Auto) 17.3 % (0.0-10.0) H 06/27/17 07:06 Eos % (Auto) 0.8 % (0.0-4.0) 06/27/17 07:06 Baso % (Auto) 0.2 % (0.0-2.0) 06/27/17 07:06 Neut # 2.1 K/uL (1.8-7.0) 06/27/17 07:06 Lymph # 0.8 K/uL (1.0-4.3) L 06/27/17 07:06 [place] # 0.6 K/uL (0.0-0.8) 06/27/17 07:06 Eos # 0.0 K/uL (0.0-0.7) 06/27/17 07:06 Baso # 0.0 K/uL (0.0-0.2) 06/27/17 07:06 Neutrophils % (Manual) 20 % (50-75) L 06/24/17 07:22 Band Neutrophils % 26 % (0-2) H* 06/24/17 07:22 Lymphocytes % (Manual) 23 % (20-40) 06/24/17 07:22 Monocytes % (Manual) 29 % (0-10) H 06/24/17 07:22 Eosinophils % (Manual) 2 % (0-4) 06/24/17 07:22 Nucleated RBC % 1 % (0-0) H 06/24/17 07:22 Platelet Estimate Normal (NORMAL) 06/24/17 07:22 Large Platelets Present 06/23/17 13:46 RBC Morphology Normal 06/24/17 07:22 PT 17.2 SECONDS (9.7-12.2) H 06/23/17 13:46 INR 1.5 06/23/17 13:46 APTT 28 SECONDS (21-34) 06/23/17 13:46 Sodium 134 mmol/L (132-148) 06/27/17 07:06 Potassium 3.2 mmol/L (3.6-5.2) L 06/27/17 07:06 Chloride 101 mmol/L (98-107) 06/27/17 07:06 Carbon Dioxide 25 mmol/L (22-30) 06/27/17 07:06 Anion Gap 12 (10-20) 06/27/17 07:06 BUN 15 mg/dL (9-20) 06/27/17 07:06 Creatinine 0.8 mg/dL (0.8-1.5) 06/27/17 07:06 Est GFR ( Amer) > 60 06/27/17 07:06 Est GFR (Non-Af Amer) > 60 06/27/17 07:06 Random Glucose 87 mg/dL (75-110) 06/27/17 07:06 Calcium 7.9 mg/dl (8.6-10.4) L 06/27/17 07:06 Phosphorus 3.2 mg/dL (2.5-4.5) 06/27/17 07:06 Magnesium 1.8 mg/dL (1.6-2.3) 06/27/17 07:06 Total Bilirubin 0.6 mg/dL (0.2-1.3) 06/27/17 07:06 Direct Bilirubin 0.7 mg/dL (0.0-0.4) H 06/24/17 07:22 AST 27 U/L (17-59) 06/27/17 07:06 ALT 35 U/L (21-72) 06/27/17 07:06 Alkaline Phosphatase 59 U/L (38-126) 06/27/17 07:06 Ammonia 9 umol/L (9-33) 06/23/17 13:46 Total Protein 5.5 g/dL (6.3-8.3) L 06/27/17 07:06 Albumin 2.9 g/dL (3.5-5.0) L 06/27/17 07:06 Globulin 2.6 gm/dL (2.2-3.9) 06/27/17 07:06 Albumin/Globulin Ratio 1.1 (1.0-2.1) 06/27/17 07:06 Lipase 11 U/L (23-300) L 06/23/17 13:46 Carcinoembryonic Ag 4.0 ng/mL (0-3.0) H 06/24/17 07:22 Urine Color Yellow (YELLOW) 06/23/17 23:16 Urine Clarity Clear (Clear) 06/23/17 23:16 Urine pH 5.0 (5.0-8.0) 06/23/17 23:16 Ur Specific [place] 1.023 (1.003-1.030) 06/23/17 23:16 Urine Protein Negative mg/dL (NEGATIVE) 06/23/17 23:16 Urine Glucose (UA) Normal mg/dL (Normal) 06/23/17 23:16 Urine Ketones Trace mg/dL (NEGATIVE) 06/23/17 23:16 Urine Blood Negative (NEGATIVE) 06/23/17 23:16 Urine Nitrate Negative (NEGATIVE) 06/23/17 23:16 Urine Bilirubin Negative (NEGATIVE) 06/23/17 23:16 Urine Urobilinogen Normal mg/dL (0.2-1.0) 06/23/17 23:16 Ur Leukocyte Esterase Neg Wilfred/uL (Negative) 06/23/17 23:16 Urine WBC (Auto) 1 /hpf (0-5) 06/23/17 23:16 Urine RBC (Auto) 2 /hpf (0-3) 06/23/17 23:16 Urine Bacteria Rare (<OCC) 06/23/17 23:16 Stool Leukocytes, Qual Negative (NEGATIVE) 06/25/17 10:40 Stl Cryptosporidium Ag Not detected (Not detected) 06/24/17 07:00 C. difficile Ag & Toxin Negative (NEGATIVE) 06/23/17 12:00 Cryptosp/Giardia Source Stool 06/24/17 07:00 Giardia Antigen Not detected (Not Detected) 06/24/17 07:00 Attending/Attestation - Attestation I have personally seen and examined this patient.: Yes I have fully participated in the care of the patient.: Yes I have reviewed all pertinent clinical information, including history, physical exam and plan: Yes Notes (Text): This is a summary of patient's hospitalization. Please refer to EMR for further details. Patient tolerating soft diet. Per general surgery, patient is stable for discharge. Patient provided scripts for Ciprofloxocin 400mg PO BID (14 tabs/0 refills) and Flagyl 500mg PO TID (21 tabs/0 refills). Patient provided Oxycodone 5mg PO Q 6H (10 tabs/0 refills); [place] prior script from 05/29/17 (90 tabs) from heme-onc, and patient provided MS contin 15mg PO Q12H (10 tabs/0 refills). Patient has stage 4 adenocarcinoma of small. Patient's pain is controlled with short and immediate acting pain medication. Patient recommended to follow-up with pain management upon discharge. Discharge Diagnoses: (1) Small bowel obstruction-->Resoled Assessment & Plan: * General Surgery consulted, Dr. Hill-->help appreciated * No surgical intervention at this time. * Tolerated advanced diet * GI consulted, Dr. Weiss-->help appreciated * Signed off 06/26/17 * Per GI,No planned GI intervention, will sign off case. Patient should have outpatient colonoscopy following resolution of acute medical condition, office contact information provided to patient. * Imaging: Abdominal Obstructive series: Findings concerning for mechanical small-bowel obstruction. No free intraperitoneal air. Bilateral hilar lymphadenopathy. 10 mm left basilar pulmonary nodule. * Patient is on IV abx-->switched to PO upon discharge * Patient reports improving bowel movements * Patient has hx of adenocarcinoma of small intestine (2) Adenocarcinoma of small intestine, stage 4-->Chronic Assessment & Plan: * With lung metastases * Heme/Onc Consult: Dr. Hart --> help appreciated-->Chemotherapy on hold due to leukopenia * Palliative Consult: Ruth --> help appreciated-->not availale * General Surgery, Dr. Hill---> Help appreciated * Imaging: Abdomen/Pelvis CT ( 06/13/17):Enlarged prostate gland with radiation seeds within and stable metastatic lymph nodes in the pelvis, the largest anterior to the left common iliac artery. Fatty liver and stable simple cyst in the right hepatic lobe. Few subcentimeter scattered lesions in the liver are too small to characterize by CT criteria. Pulmonary metastasis and bilateral hilar adenopathy, larger on the right. * Abdomen/Pelvis CT ( 04/17/17): Innumerable new pulmonary metastasis the preponderance of which are 1 cm or less. The largest nodules in the lower lobe are all less than 1.6 cm. Status:Chronic (3) Abdominal pain-->Resolved Assessment & Plan: * Possibly secondary to small bowel adenocarcinoma vs. infection vs SBO * GI consult: Dr. Weiss --> help appreciated-->signed off 06/26 * General Surgery, Dr. Hill-->help appreciated * Obstructive Series (06/23/17): Findings concerning for mechanical small-bowel obstruction. No free intraperitonneal air. Bilateral hilar lymphadenopathy. 10mm left basilar pulmonary nodule. * Diet advanced to soft diet today * Pain improved with pain medication - Medications: * Morphine IV 1mg PRN Q4H * MS Contin 15mg PO Q12H * Lactated Ringers 130mg/kg/hr * Zofran 4mg IV q6h PRN for nausea Status: Acute (4) Diarrhea-->Resolved Assessment & Plan: * Gastrointestinal consulted, Dr. Weiss-->help appreciated * Improving * C. 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 dif negative, Stool ova and parasite negative, stool leukocytes negative (7) Prophylactic measure Assessment & Plan: * SCDs * Heparin 5000 U SC Q8H * Pepcid 20mg PO daily * Florastor 250mg PO BID * Diet advanced to liquid * D/C IV fluids Status: Acute
== END 2017-06-27 17:28 | disposition home or self-care (01) | DRG 389 ==
LOC: C.ER 13:00 → C.9E 14:39 → INTOOBSV 14:39 → C.3T 18:18 → OBSVTOIN 06-24 10:10
PROVIDERS: ADMIT Internal Medicine; ATTEND Internal Medicine
DX: K56.609 Unspecified intestinal obstruction, unspecified as to partial versus complete obstruction (principal); C17.9 Malignant neoplasm of small intestine, unspecified; C77.2 Secondary and unspecified malignant neoplasm of intra-abdominal lymph nodes; C78.00 Secondary malignant neoplasm of unspecified lung; D70.1 Agranulocytosis secondary to cancer chemotherapy; E86.0 Dehydration; K76.0 Fatty (change of) liver, not elsewhere classified; I10 Essential (primary) hypertension; E87.6 Hypokalemia; D72.819 Decreased white blood cell count, unspecified; D72.825 Bandemia; G89.3 Neoplasm related pain (acute) (chronic); K29.70 Gastritis, unspecified, without bleeding; K52.9 Noninfective gastroenteritis and colitis, unspecified; K76.89 Other specified diseases of liver; N40.0 Benign prostatic hyperplasia without lower urinary tract symptoms; T45.1X5A Adverse effect of antineoplastic and immunosuppressive drugs, initial encounter; Z85.46 Personal history of malignant neoplasm of prostate; Z87.891 Personal history of nicotine dependence; Z90.49 Acquired absence of other specified parts of digestive tract; R19.7 Diarrhea, unspecified

== ENCOUNTER 2018-06-01 06:49 | Day surgery (SDC) | payer MEDICARE, MEDICAID ==
--- NOTE | 2018-06-01 08:04 | CP.SDSHP ---
Same Day Surgery H & P - History Proposed Procedure: COLONSCOPY Pre-Op Diagnosis: SEE NOTES - Previous Medical/Surgical History Previous Surgical History: COLON POLYPS / ?? LYMPHOMA ON CHEMO. - Allergies Allergies: Allergies No Known Allergies Allergy (Verified 06/22/17 10:15) - Physical Exam General Appearance: N Vital Signs: Vital Signs 06/01/18 07:00 Temperature 97.8 F Pulse Rate 80 Respiratory 20 Rate Blood Pressure 124/78 O2 Sat by Pulse 98 Oximetry Mental Status: Alert & Oriented x3 Neuro: WNL Heart: WNL Lungs: WNL GI: WNL - {Optional Preform as Required} Breast: WNL Integument: WNL : WNL Ortho: WNL ENT: WNL - Impression Pt. Evaluated Today:Candidate for Anesthesia & Procedure: Yes - Date & Time Time: 08:04 Short Stay Discharge - Short Stay Discharge Admitting Diagnosis/Reason for Visit: PERSONAL HISTORY OF COLONIC POLYPS Disposition: HOME/ ROUTINE
[2018-06-01] MEDS ORDERED: Propofol 10 mg/ml Inj (20 ML) ONE (08:05)
[2018-06-01 08:36] VITALS: TEMP 97.3
[2018-06-01 08:45] VITALS: O2SAT 100
[2018-06-01] MEDS ORDERED: Belladonna-Phenobarbital PO ONE (09:00)
[2018-06-01 09:48] VITALS: BP 131/78; PULSE 66; RESP 13
== END 2018-06-01 09:25 | disposition home or self-care (01) ==
LOC: C.ENDO 06:49
PROVIDERS: ATTEND Specialist
DX: Z12.11 Encounter for screening for malignant neoplasm of colon (principal); Z86.010 Personal history of colon polyps; K64.8 Other hemorrhoids; K58.9 Irritable bowel syndrome, unspecified
CPT/HCPCS: 45380; 88305; J2704